=== PATIENT | male | born 1985 | race Caucasian/White ===

== ENCOUNTER 2023-02-13 22:16 | Emergency (ER) | payer OTHER ==
[2023-02-13 22:36] VITALS: RESP 18; TEMP 98.5
[2023-02-13] MEDS ORDERED: KETOROLAC 15 MG/ML 1 ML VIAL IM STA (23:10)
--- NOTE | 2023-02-14 00:16 | XR ---
EXAM: XR Left Foot Complete, 3 or More Views CLINICAL HISTORY: fall pain swelling TECHNIQUE: Frontal, lateral and oblique views of the left foot. COMPARISON: No relevant prior studies available. FINDINGS: Bones/joints: Unremarkable. No acute fracture. No dislocation. Soft tissues: Unremarkable. No radiopaque foreign body. IMPRESSION: Normal left foot x-rays.
--- NOTE | 2023-02-14 00:17 | XR ---
EXAM: XR Left Ankle Complete, 3 or More Views CLINICAL HISTORY: fall, pain, swelling TECHNIQUE: Frontal, lateral and oblique views of the left ankle. COMPARISON: No relevant prior studies available. FINDINGS: Bones/joints: Unremarkable. No acute fracture. No dislocation. Soft tissues: Unremarkable. IMPRESSION: Normal left ankle x-rays.
--- NOTE | 2023-02-14 00:38 | ED ---
General Adult HPI - General Chief complaint: Extremity Injury, Lower Stated complaint: Left Ankle Injury Time Seen by Provider: 02/13/23 22:49 Source: patient Mode of arrival: ambulatory Limitations: no limitations - History of Present Illness Initial comments: 37-year-old male presenting to the ED with a chief complaint of left ankle injury. Patient states this morning lost his footing and inverted his ankle. Notes that he has had difficulty ambulating since. No other injuries at this time. No other complaints. - Related Data Previous Rx's Medication Instructions Recorded Ibuprofen [Motrin] 600 mg PO Q8HR PRN #20 tab 02/14/23 Allergies Allergy/AdvReac Type Severity Reaction Status Date / Time No Known Allergies Allergy Verified 02/13/23 22:18 Review of Systems ROS Statement: Those systems with pertinent positive or pertinent negative responses have been documented in the HPI. ROS Other: All systems not noted in ROS Statement are negative. Past Medical History Past Medical History: Hypertension History of Any Multi-Drug Resistant Organisms: None Reported Past Surgical History: No Surgical Hx Reported Past Psychological History: Anxiety, Depression Smoking Status: Current every day smoker Past Alcohol Use History: None Reported Past Drug Use History: None Reported General Exam Limitations: no limitations General appearance: alert, in no apparent distress Neck exam: Present: normal inspection Respiratory exam: Present: normal lung sounds bilaterally Cardiovascular Exam: Present: regular rate, normal rhythm GI/Abdominal exam: Present: soft Extremities exam: Present: other (No significant tenderness palpation at the lateral malleolus, the malleolus, navicular, base of the fifth metatarsal.) Neurological exam: Present: alert, oriented X3 Skin exam: Present: warm, dry Course Vital Signs 02/13/23 22:19 Temperature 98.5 F Pulse Rate 81 Respiratory 18 Rate Blood Pressure 144/101 O2 Sat by Pulse 98 Oximetry Medical Decision Making - Medical Decision Making Was pt. sent in by a medical professional or institution (, PA, PLANTING MATERIAL REMOVER, urgent care, hospital, or group home...) When possible be specific @ -No Did you speak to anyone other than the patient for history (EMS, parent, family, police, friend...)? What history was obtained from this source @ -No Did you review nursing and triage notes (agree or disagree)? Why? @ -I reviewed and agree with nursing and triage notes Were old charts reviewed (outside hosp., previous admission, EMS record, old EKG, old radiological studies, urgent care reports/EKG's, group home records)? Report findings @ -No old charts were reviewed Differential Diagnosis (chest pain, altered mental status, abdominal pain women, abdominal pain men, vaginal bleeding, weakness, fever, dyspnea, syncope, headache, dizziness, GI bleed, back pain, seizure, CVA, palpatations, mental health, musculoskeletal)? @ -Differential Musculoskeletal Muscular strain, contusion, ligament sprain, fracture, arthritis, septic arthritis, bursitis, cellulitis, muscle spasm, nerve compression, DVT, arterial occlusion, herpes zoster, electrolyte abnormality, tumor.... This is not meant to be in all inclusive list EKG interpreted by me (3pts min.). @ -As above X-rays interpreted by me (1pt min.). @ -X-rays of the left foot and ankle interpreted by me showing no evidence of fracture or other acute finding. CT interpreted by me (1pt min.). @ -None done U/S interpreted by me (1pt. min.). @ -None done What testing was considered but not performed or refused? (CT, X-rays, U/S, labs)? Why? @ -None What meds were considered but not given or refused? Why? @ -None Did you discuss the management of the patient with other professionals (professionals i.e. , PA, PLANTING MATERIAL REMOVER, lab, RT, psych nurse, social media marketer, door to door sales representative, teacher, asset protection officer, pillowcase sewer)? Give summary @ -No Was smoking cessation discussed for >3mins.? @ -No Was critical care preformed (if so, how long)? @ -No Were there social determinants of health that impacted care today? How? (Homelessness, low income, unemployed, alcoholism, drug addiction, transportation, low edu. Level, literacy, decrease access to med. care, residential, rehab)? @ -No Was there de-escalation of care discussed even if they declined (Discuss DNR or withdrawal of care, Hospice)? DNR status @ -No What co-morbidities impacted this encounter? (DM, HTN, Smoking, COPD, CAD, Cancer, CVA, ARF, Chemo, Hep., AIDS, mental health diagnosis, sleep apnea, morbid obesity)? @ -None Was patient admitted / discharged? Hospital course, mention meds given and route, prescriptions, significant lab abnormalities, going to OR and other pertinent info. @ -Discharge 37-year-old male presents to the ED after inverting his left ankle this morning. Imaging shows no acute findings. Patient provided Toradol with significant improvement of pain. Discharged home in stable condition. Patient's ankle wrapped for comfort. Undiagnosed new problem with uncertain prognosis? @ -No Drug Therapy requiring intensive monitoring for toxicity (Heparin, Nitro, Insulin, Cardizem)? @ -No Were any procedures done? @ -No Diagnosis/symptom? @ -Ankle sprain Acute, or Chronic, or Acute on Chronic? @ -Acute Uncomplicated (without systemic symptoms) or Complicated (systemic symptoms)? @ -Uncomplicated Side effects of treatment? @ -No Exacerbation, Progression, or Severe Exacerbation? @ -No Poses a threat to life or bodily function? How? (Chest pain, USA, CT, pneumonia, PE, COPD, DKA, ARF, appy, cholecystitis, CVA, Diverticulitis, Homicidal, Suicidal, threat to staff... and all critical care pts) @ -No Disposition Clinical Impression: Ankle sprain Disposition: HOME SELF-CARE Condition: Good Instructions (If sedation given, give patient instructions): Ankle Sprain (ED) Additional Instructions: Please return to the Emergency Department if symptoms worsen or any other concerns. Prescriptions: Ibuprofen [Motrin] 600 mg PO Q8HR PRN #20 tab PRN Reason: Pain Is patient prescribed a controlled substance at d/c from ED?: No Referrals: None,Stated [Primary Care Provider] - 1-2 days Time of Disposition: 00:41
[2023-02-14 01:20] VITALS: BP 149/97; PULSE 72
== END 2023-02-14 01:10 | disposition home or self-care (01) ==
LOC: EC 22:16
DX: S93.402A Sprain of unspecified ligament of left ankle, initial encounter (principal); I10 Essential (primary) hypertension; F17.200 Nicotine dependence, unspecified, uncomplicated; Z86.59 Personal history of other mental and behavioral disorders; X50.9XXA Other and unspecified overexertion or strenuous movements or postures, initial encounter
CPT/HCPCS: 73610; 73630; 99283; 96372; J1885

== ENCOUNTER 2023-03-01 18:47 | Inpatient (IN) | payer OTHER ==
[2023-03-01] MEDS ORDERED: SODIUM CHLORIDE 0.9% 1,000 ML IV STA (18:50)
[2023-03-01] MEDS ORDERED: NALOXONE 0.4 MG/ML 1 ML VIAL IV STA (18:50)
--- NOTE | 2023-03-01 18:52 | ED ---
Overdose HPI - General Stated Complaint: Overdose, Mental Health Time Seen by Provider: 03/01/23 18:49 Source: RN notes reviewed, old records reviewed Mode of arrival: EMS Limitations: no limitations - History of Present Illness Initial Comments: This is a 37-year-old male to the emergency department for evaluation. Patient suicide attempt with overdose today. Patient presents with overdose today. Patient is here in the emergency department for overdose on for medications including beta maureen blood pressure medications as well as drinking alcohol today and suicide attempt. Patient himself feels weak lightheaded and sometimes confused MD Complaint: intentional overdose -: days(s) Intent: unwilling to say Context: Intentional Overdose: relationship problems Context: Accidental Overdose: wanted to get high Associated Symptoms: depression Treatments Prior to Arrival: none - Related Data Home Medications Medication Instructions Recorded Confirmed Losartan [Cozaar] 50 mg PO DAILY 03/01/23 03/03/23 Metoprolol Succinate (ER) [Toprol 100 mg PO DAILY 03/01/23 03/03/23 XL] Rizatriptan Odt [Maxalt AUTO TRANSMISSION SPECIALIST] 10 mg PO BID PRN 03/01/23 03/03/23 Previous Rx's Medication Instructions Recorded Mirtazapine [Remeron] 15 mg PO HS PRN 14 Days #14 tab 03/09/23 Nicotine 14Mg/24Hr Patch [Habitrol] 1 patch TRANSDERM DAILY 14 Days 03/09/23 #14 patch Nicotine Gum (Polacrilex) 2 mg BUCCAL Q4HR PRN pieceofgum 03/09/23 [Nicorette] Sertraline [Zoloft] 100 mg PO DAILY 30 Days #30 tab 03/09/23 diphenhydrAMINE [Benadryl] 50 mg PO HS 30 Days #30 cap 03/09/23 hydrOXYzine pamoate [Vistaril] 50 mg PO DAILY PRN 30 Days #30 cap 03/09/23 Allergies Allergy/AdvReac Type Severity Reaction Status Date / Time No Known Allergies Allergy Verified 03/01/23 19:36 Review of Systems ROS Statement: Those systems with pertinent positive or pertinent negative responses have been documented in the HPI. ROS Other: All systems not noted in ROS Statement are negative. Past Medical History Past Medical History: Hypertension History of Any Multi-Drug Resistant Organisms: None Reported Past Surgical History: No Surgical Hx Reported Past Psychological History: Anxiety, Depression Smoking Status: Current every day smoker Past Alcohol Use History: None Reported Past Drug Use History: None Reported - Past Family History Mother Family Medical History: COPD, Pneumonia Additional Family Medical History / Comment(s): Emphysema, had recent heart cath General Exam General appearance: alert, in no apparent distress Head exam: Present: atraumatic, normocephalic, normal inspection Eye exam: Present: normal appearance, PERRL, EOMI. Absent: scleral icterus, conjunctival injection, periorbital swelling ENT exam: Present: normal exam, mucous membranes moist Neck exam: Present: normal inspection. Absent: tenderness, meningismus, lymphadenopathy Respiratory exam: Present: normal lung sounds bilaterally. Absent: respiratory distress, wheezes, rales, rhonchi, stridor Cardiovascular Exam: Present: regular rate, normal rhythm, normal heart sounds. Absent: systolic murmur, diastolic murmur, rubs, gallop, clicks GI/Abdominal exam: Present: soft, normal bowel sounds. Absent: distended, tenderness, guarding, rebound, rigid Extremities exam: Present: normal inspection, full ROM, normal capillary refill. Absent: tenderness, pedal edema, joint swelling, calf tenderness Back exam: Present: normal inspection Neurological exam: Present: alert, oriented X3, CN II-XII intact Psychiatric exam: Present: normal affect, normal mood Skin exam: Present: warm, dry, intact, normal color. Absent: rash Course Vital Signs 03/01/23 03/01/23 03/01/23 18:48 18:58 19:20 Temperature 97.1 F L Pulse Rate 81 84 Respiratory 16 16 14 Rate Blood Pressure 114/86 123/81 O2 Sat by Pulse 95 95 Oximetry 03/01/23 03/01/23 03/02/23 20:00 21:27 00:02 Temperature Pulse Rate 75 70 71 Respiratory 20 17 17 Rate Blood Pressure 119/82 112/84 98/71 O2 Sat by Pulse 95 96 95 Oximetry 03/02/23 03/02/23 03/02/23 01:01 01:33 02:31 Temperature Pulse Rate 67 65 77 Respiratory 17 17 19 Rate Blood Pressure 98/65 100/67 98/70 O2 Sat by Pulse 94 L 67 L 93 L Oximetry 03/02/23 03/02/23 03/02/23 02:46 03:16 04:53 Temperature Pulse Rate 70 70 80 Respiratory 18 17 17 Rate Blood Pressure 97/65 100/68 106/75 O2 Sat by Pulse 94 L 95 96 Oximetry 03/02/23 03/02/23 03/02/23 05:09 06:19 09:49 Temperature 98.2 F Pulse Rate 79 74 77 Respiratory 17 17 18 Rate Blood Pressure 127/77 129/92 130/90 O2 Sat by Pulse 93 L 94 L 96 Oximetry 03/02/23 03/02/23 03/02/23 10:30 12:26 13:00 Temperature Pulse Rate 72 69 79 Respiratory 18 13 16 Rate Blood Pressure 131/89 146/103 145/100 O2 Sat by Pulse 96 Oximetry 03/02/23 03/02/23 03/02/23 14:00 15:00 16:00 Temperature Pulse Rate 79 67 67 Respiratory 18 15 14 Rate Blood Pressure 124/92 132/94 112/85 O2 Sat by Pulse Oximetry 03/02/23 03/02/23 03/02/23 17:00 18:00 19:00 Temperature Pulse Rate 68 71 72 Respiratory 16 12 Rate Blood Pressure 127/86 135/93 135/97 O2 Sat by Pulse Oximetry 03/02/23 03/02/23 03/02/23 20:00 21:00 22:00 Temperature Pulse Rate 64 64 62 Respiratory 18 16 16 Rate Blood Pressure 128/88 137/109 137/102 O2 Sat by Pulse Oximetry 03/02/23 23:35 Temperature 98.2 F Pulse Rate 94 Respiratory 19 Rate Blood Pressure 118/84 O2 Sat by Pulse 98 Oximetry - Reevaluation(s) Reevaluation #1: 03/01/23 21:02 Medical record is reviewed Reevaluation #2: 03/01/23 21:02 Patient's vital signs have remained normal and stable throughout ER stay Reevaluation #3: 03/01/23 21:02 Patient informed results questions answered Reevaluation #4: 03/01/23 21:02 Was pt. sent in by a medical professional or institution (, PA, DEVICE PROCESSING ENGINEER, urgent care, hospital, or longterm...) When possible be specific @ -no Did you speak to anyone other than the patient for history (EMS, parent, family, police, friend...)? What history was obtained from this source @ -no Did you review nursing and triage notes (agree or disagree)? Why? @ -agree Are old charts reviewed (outside hosp., previous admission, EMS record, old EKG, old radiological studies, urgent care reports/EKG's, longterm records)? Report findings @ -yes Differential Diagnosis (chest pain, altered mental status, abdominal pain women, abdominal pain men, vaginal bleeding, weakness, fever, dyspnea, syncope, headache, dizziness, GI bleed, back pain, seizure, CVA, palpatations, mental health, musculoskeletal)? @ -prior EKG interpreted by me (3pts min.). @ -yes X-rays interpreted by me (1pt min.). @ -no CT interpreted by me (1pt min.). @ -no U/S interpreted by me (1pt. min.). @ -no What testing was considered but not performed or refused? (CT, X-rays, U/S, labs)? Why? @ -none What meds were considered but not given or refused? Why? @ -none Did you discuss the management of the patient with other professionals (professionals i.e. , PA, DEVICE PROCESSING ENGINEER, lab, RT, psych nurse, family welfare social work professor, cdl b driver, teacher, forestry technical officer, case fitter)? Give summary @ -no Was smoking cessation discussed for >3mins.? @ -no Was critical care preformed (if so, how long)? @ -no Were there social determinants of health that impacted care today? How? (Homelessness, low income, unemployed, alcoholism, drug addiction, transportation, low edu. Level, literacy, decrease access to med. care, residential, rehab)? @ -none Was there de-escalation of care discussed even if they declined (Discuss DNR or withdrawal of care, Hospice)? DNR status @ -no What co-morbidities impacted this encounter? (DM, HTN, Smoking, COPD, CAD, Cancer, CVA, ARF, Chemo, Hep., AIDS, mental health diagnosis, sleep apnea, m orbid obesity)? @ -none Was patient admitted / discharged? Hospital course, mention meds given and route, prescriptions, significant lab abnormalities, going to OR and other pertinent info. @ - 37 male to the emergency department today for evaluation of overdose polysubstance overdose with alcohol intoxication and patient be admitted for suicidal attempt Admitted Undiagnosed new problem with uncertain prognosis? @ -no Drug Therapy requiring intensive monitoring for toxicity (Heparin, Nitro, I nsulin, Cardizem)? @ -no Were any procedures done? @ -no Diagnosis/symptom? @ -Overdose, polysubstance overdose suicide Acute, or Chronic, or Acute on Chronic? @ -Acute Uncomplicated (without systemic symptoms) or Complicated (systemic symptoms)? @ -Complicated Side effects of treatment? @ -no Exacerbation, Progression, or Severe Exacerbation? @ -exacerbation Poses a threat to life or bodily function? How? (Chest pain, [place], [place], pneumonia, PE, COPD, DKA, ARF, appy, cholecystitis, CVA, Diverticulitis, Homicidal, Suicidal, threat to staff... and all critical care pts) @ -yes significant overdose - Consultations Consultation #1: Spoke with PM were agrees to admit this patient Medical Decision Making - Medical Decision Making 37 male to the emergency department today for evaluation of overdose polysubstance overdose with alcohol intoxication and patient be admitted for suicidal attempt - Lab Data Result diagrams: 03/03/23 08:32 03/03/23 08:32 Lab Results 03/01/23 03/01/23 03/01/23 Range/Units 18:53 18:55 18:55 WBC 7.4 (3.8-10.6) k/uL RBC 4.95 (4.30-5.90) m/uL Hgb 14.3 (13.0-17.5) gm/dL Hct 43.0 (39.0-53.0) % MCV 86.8 (80.0-100.0) fL MCH 28.9 (25.0-35.0) pg MCHC 33.3 (31.0-37.0) g/dL RDW 13.7 (11.5-15.5) % Plt Count 554 H (150-450) k/uL MPV 8.3 Neutrophils % 52 % Lymphocytes % 36 % Monocytes % 4 % Eosinophils % 3 % Basophils % 1 % Neutrophils # 3.9 (1.3-7.7) k/uL Lymphocytes # 2.7 (1.0-4.8) k/uL Monocytes # 0.3 (0-1.0) k/uL Eosinophils # 0.3 (0-0.7) k/uL Basophils # 0.1 (0-0.2) k/uL PT 10.1 (10.0-12.5) sec INR 0.9 (<1.2) Sodium (137-145) mmol/L Potassium (3.5-5.1) mmol/L Chloride (98-107) mmol/L Carbon Dioxide (22-30) mmol/L Anion Gap mmol/L BUN (9-20) mg/dL Creatinine (0.66-1.25) mg/dL Est GFR (CKD-EPI)AfAm (>60 ml/min/1.73 sqM) Est GFR (CKD-EPI)NonAf (>60 ml/min/1.73 sqM) Glucose (74-99) mg/dL POC Glucose (mg/dL) 93 (70-110) mg/dL POC Glu Test Developer ID Josh Menchaca Plasma Lactic Acid De (0.7-2.0) mmol/L Calcium (8.4-10.2) mg/dL Total Bilirubin (0.2-1.3) mg/dL AST (17-59) U/L ALT (4-49) U/L Alkaline Phosphatase (38-126) U/L Total Protein (6.3-8.2) g/dL Albumin (3.5-5.0) g/dL Lipase (23-300) U/L Salicylates mg/dL Acetaminophen ug/mL [place] mmol/L Serum Alcohol mg/dL 03/01/23 03/01/23 Range/Units 18:55 18:55 WBC (3.8-10.6) k/uL RBC (4.30-5.90) m/uL Hgb (13.0-17.5) gm/dL Hct (39.0-53.0) % MCV (80.0-100.0) fL MCH (25.0-35.0) pg MCHC (31.0-37.0) g/dL RDW (11.5-15.5) % Plt Count (150-450) k/uL MPV Neutrophils % % Lymphocytes % % Monocytes % % Eosinophils % % Basophils % % Neutrophils # (1.3-7.7) k/uL Lymphocytes # (1.0-4.8) k/uL Monocytes # (0-1.0) k/uL Eosinophils # (0-0.7) k/uL Basophils # (0-0.2) k/uL PT (10.0-12.5) sec INR (<1.2) Sodium 141 (137-145) mmol/L Potassium 4.0 (3.5-5.1) mmol/L Chloride 107 (98-107) mmol/L Carbon Dioxide 20 L (22-30) mmol/L Anion Gap 14 mmol/L BUN 14 (9-20) mg/dL Creatinine 0.75 (0.66-1.25) mg/dL Est GFR (CKD-EPI)AfAm >90 (>60 ml/min/1.73 sqM) Est GFR (CKD-EPI)NonAf >90 (>60 ml/min/1.73 sqM) Glucose 99 (74-99) mg/dL POC Glucose (mg/dL) (70-110) mg/dL POC Glu Test Developer ID Plasma Lactic Acid De 2.5 H* (0.7-2.0) mmol/L Calcium 8.5 (8.4-10.2) mg/dL Total Bilirubin 0.3 (0.2-1.3) mg/dL AST 35 (17-59) U/L ALT 26 (4-49) U/L Alkaline Phosphatase 61 (38-126) U/L Total Protein 6.9 (6.3-8.2) g/dL Albumin 4.2 (3.5-5.0) g/dL Lipase 187 (23-300) U/L Salicylates <1.0 mg/dL Acetaminophen <10.0 ug/mL [place] <0.2 mmol/L Serum Alcohol 267 H* mg/dL - EKG Data -: EKG Interpreted by Me (EKG is sinus 82 OH 182 QRS 84 QTc 398) Disposition Clinical Impression: Drug overdose, Suicide attempt by multiple drug overdose Disposition: ADMITTED IP TO THIS HOSP Condition: Good Is patient prescribed a controlled substance at d/c from ED?: No Time of Disposition: 20:00
[2023-03-01 18:56] LABS: Glucose,Whole Blood 93 mg/dL (70-110)
[2023-03-01 19:16] LABS: Basophils # (A) 0.1 k/uL (0-0.2); Basophils % (A) 1 %; Eosinophils # (A) 0.3 k/uL (0-0.7); Eosinophils % (A) 3 %; HGB 14.3 gm/dL (13.0-17.5); Lymphocytes # (A) 2.7 k/uL (1.0-4.8); Lymphocytes % (A) 36 %; MCH 28.9 pg (25.0-35.0); MCHC 33.3 g/dL (31.0-37.0); MCV 86.8 fL (80.0-100.0); Mean Platelet Volume 8.3; Monocytes # (A) 0.3 k/uL (0-1.0); Monocytes % (A) 4 %; Neutrophils # (A) 3.9 k/uL (1.3-7.7); Neutrophils % (A) 52 %; Platelet Count 554 k/uL (150-450); RBC 4.95 m/uL (4.30-5.90); RDW 13.7 % (11.5-15.5); WBC 7.4 k/uL (3.8-10.6)
[2023-03-01 19:17] LABS: ALT 26 U/L (4-49); AST 35 U/L (17-59); Acetaminophen <10.0 ug/mL; African American GFR (CKD) >90 (>60 ml/min/1.73 sqM); Albumin 4.2 g/dL (3.5-5.0); Alkaline Phosphatase 61 U/L (38-126); Anion Gap 14 mmol/L; Blood Urea Nitrogen 14 mg/dL (9-20); Calcium 8.5 mg/dL (8.4-10.2); Carbon Dioxide 20 mmol/L (22-30); Chloride 107 mmol/L (98-107); Glucose 99 mg/dL (74-99); Lipase 187 U/L (23-300); Non-African American GFR(CKD) >90 (>60 ml/min/1.73 sqM); Salicylate <1.0 mg/dL; Sodium 141 mmol/L (137-145); Total Bilirubin 0.3 mg/dL (0.2-1.3); Total Protein 6.9 g/dL (6.3-8.2)
[2023-03-01 19:21] LABS: INR 0.9 (<1.2); Prothrombin Time 10.1 sec (10.0-12.5)
[2023-03-01 19:22] LABS: Alcohol 267 mg/dL
[2023-03-01 19:33] LABS: Lithium <0.2 mmol/L
[2023-03-01] MEDS ORDERED: ONDANSETRON 4 MG/2 ML VIAL IVP PRN (19:48)
[2023-03-01] MEDS ORDERED: NALOXONE 0.4 MG/ML 1 ML VIAL IV PRN (19:48)
[2023-03-01] MEDS: SODIUM CHLORIDE 0.9% 1,000 ML IV SCH (20:57)
[2023-03-02] MEDS: SODIUM CHLORIDE 0.9% 1,000 ML IV ONE ×2 (02:47→06:50)
[2023-03-02] MEDS: SODIUM CHLORIDE 0.9% 1,000 ML IV SCH (02:50)
[2023-03-02 06:09] LABS: Amphetamine Screen,Urine Not Detected (NotDetected); Barbiturate Screen,Urine Not Detected (NotDetected); Benzodiazepines Screen,Urine Not Detected (NotDetected); Cocaine Screen,Urine Not Detected (NotDetected); Methadone Screen, Urine Not Detected (NotDetected); Opiate Screen,Urine Not Detected (NotDetected); Oxycodone Screen, Urine Not Detected (NotDetected); Phencyclidine Screen,Urine Not Detected (NotDetected); Tricyclic Antidepressant,Urine Not Detected (NotDetected); Urn Cannabinoid Scrn Detected (NotDetected)
[2023-03-02 08:45] LABS: Basophils # (A) 0.1 k/uL (0-0.2); Basophils % (A) 1 %; Eosinophils # (A) 0.2 k/uL (0-0.7); Eosinophils % (A) 3 %; HGB 13.9 gm/dL (13.0-17.5); Lymphocytes # (A) 2.4 k/uL (1.0-4.8); Lymphocytes % (A) 33 %; MCH 29.2 pg (25.0-35.0); MCHC 33.2 g/dL (31.0-37.0); MCV 87.9 fL (80.0-100.0); Mean Platelet Volume 9.1; Monocytes # (A) 0.4 k/uL (0-1.0); Monocytes % (A) 6 %; Neutrophils # (A) 4.1 k/uL (1.3-7.7); Neutrophils % (A) 55 %; Platelet Count 472 k/uL (150-450); RBC 4.77 m/uL (4.30-5.90); WBC 7.5 k/uL (3.8-10.6)
[2023-03-02 08:51] LABS: ALT 26 U/L (4-49); AST 34 U/L (17-59); African American GFR (CKD) >90 (>60 ml/min/1.73 sqM); Albumin 3.9 g/dL (3.5-5.0); Alkaline Phosphatase 56 U/L (38-126); Anion Gap 10 mmol/L; Blood Urea Nitrogen 12 mg/dL (9-20); Calcium 8.6 mg/dL (8.4-10.2); Carbon Dioxide 22 mmol/L (22-30); Chloride 106 mmol/L (98-107); Glucose 88 mg/dL (74-99); Lipase 71 U/L (23-300); Non-African American GFR(CKD) >90 (>60 ml/min/1.73 sqM); Sodium 138 mmol/L (137-145); Total Bilirubin 0.5 mg/dL (0.2-1.3); Total Protein 6.5 g/dL (6.3-8.2)
[2023-03-02] MEDS: MORPHINE SULFATE 4 MG/ML SYRINGE IV PRN ×3 (09:49→20:35)
[2023-03-02] MEDS ORDERED: CALCIUM CARBONATE 500 MG CHEWABLE PO PRN (09:56)
[2023-03-02] MEDS ORDERED: MAG HYDROX/AL HYDROX/SIMETH 30 ML CUP PO PRN (09:56)
[2023-03-02] MEDS ORDERED: ACETAMINOPHEN TAB 325 MG TAB PO PRN (09:56)
[2023-03-02] MEDS ORDERED: NALOXONE 0.4 MG/ML 1 ML VIAL IV PRN (09:56)
--- NOTE | 2023-03-02 12:01 | P.HPIM ---
History of Present Illness H&P Date: 03/02/23 History of present illness; patient is a 37-year-old gentleman with past medical history significant for depression, hypertension who presented to the ER for an attempted suicide attempt and overdose. Patient states that he lives with his mother who he is the primary caregiver off. Patient stated he has been feeling very stressed and depressed for the last week. Patient was having loss of appetite and lack of interest in normal activities. Patient tried to commit suicide by overdosing on his blood pressure medications which was metoprolol and drinking alcohol at the same time. Patient was complaining of weakness, denies any chest pain or shortness of breath. Denies any lightheadedness or dizziness. No complaint of palpitations. Denies any auditory or visual hallucinations. Denies any homicidal thoughts .Because of the symptoms, patient was brought to the ER. Initial lab work done in the ER showed WBC 7.4, hemoglobin 14.3, platelet count 554, sodium 141, potassium 4, BUN/creatinine 14, creatinine 0.75, lactate was 2.5 Urine drug screen was positive for marijuana EKG done in the ERShowed sinus rhythm, no ST segment elevation, no T-wave inversions seen Patient admitted to medicine service REVIEW OF SYSTEMS: CONSTITUTIONAL: No fever, no malaise, no fatigue. HEENT: No recent visual problems or hearing problems. Denied any sore throat. CARDIOVASCULAR: No chest pain, orthopnea, PND, no palpitations, no syncope. PULMONARY: No shortness of breath, no cough, no hemoptysis. GASTROINTESTINAL: No diarrhea, no nausea, no vomiting, no abdominal pain. NEUROLOGICAL: No headaches, no weakness, no numbness. HEMATOLOGICAL: Denies any bleeding or petechiae. GENITOURINARY: Denies any burning micturition, frequency, or urgency. MUSCULOSKELETAL/RHEUMATOLOGICAL: Denies any joint pain, swelling, or any muscle pain. ENDOCRINE: Denies any polyuria or polydipsia. The rest of the 14-point review of systems is negative. PHYSICAL EXAMINATION: GENERAL: The patient is alert and oriented x3, not in any acute distress. Well developed, well nourished. HEENT: Pupils are round and equally reacting to light. EOMI. No scleral icterus. No conjunctival pallor. Normocephalic, atraumatic. No pharyngeal erythema. No thyromegaly. CARDIOVASCULAR: S1 and S2 present. No murmurs, rubs, or gallops. PULMONARY: Chest is clear to auscultation, no wheezing or crackles. ABDOMEN: Soft, nontender, nondistended, normoactive bowel sounds. No palpable organomegaly. MUSCULOSKELETAL: No joint swelling or deformity. EXTREMITIES: No cyanosis, clubbing, or pedal edema. NEUROLOGICAL: Gross neurological examination did not reveal any focal deficits. SKIN: No rashes. Assessment and plan Suicidal attempt Drug overdose Lactic acidosis Major depression Hypertension Monitor vital signs Monitor CBC Monitor CMP Continue telemetry monitoring Hold all beta blockers for now Suicide precautions Elopement precautions Resume home meds Psych consulted Labs and medication were reviewed.. Continue same treatment. Continue with symptomatic treatment. Resume home medication. Monitor labs and vitals. DVT and GI prophylaxis. Further recommendations as per clinical course of the patient Dictation was produced using [employer] dictation software. please excuse any grammatical, word or spelling errors. Past Medical History Past Medical History: Hypertension History of Any Multi-Drug Resistant Organisms: None Reported Past Surgical History: No Surgical Hx Reported Past Psychological History: Anxiety, Depression Smoking Status: Current every day smoker Past Alcohol Use History: None Reported Past Drug Use History: None Reported Medications and Allergies Home Medications Medication Instructions Recorded Confirmed Type Losartan [Cozaar] 50 mg PO DAILY 03/01/23 03/01/23 History Metoprolol Succinate (ER) [Toprol 100 mg PO DAILY 03/01/23 03/01/23 History Xl] Rizatriptan Odt [Maxalt [employer]] 10 mg PO BID PRN 03/01/23 03/01/23 History Allergies Allergy/AdvReac Type Severity Reaction Status Date / Time No Known Allergies Allergy Verified 03/01/23 19:36 Physical Exam Vitals: Vital Signs Temp Pulse Resp BP Pulse Ox 03/02/23 09:49 77 18 130/90 96 03/02/23 06:19 98.2 F 74 17 129/92 94 L 03/02/23 05:09 79 17 127/77 93 L 03/02/23 04:53 80 17 106/75 96 03/02/23 03:16 70 17 100/68 95 03/02/23 02:46 70 18 97/65 94 L 03/02/23 02:31 77 19 98/70 93 L 03/02/23 01:33 65 17 100/67 67 L 03/02/23 01:01 67 17 98/65 94 L 03/02/23 00:02 71 17 98/71 95 03/01/23 21:27 70 17 112/84 96 03/01/23 20:00 75 20 119/82 95 03/01/23 19:20 84 14 123/81 95 03/01/23 18:58 16 03/01/23 18:48 97.1 F L 81 16 114/86 95 Intake and Output 03/01/23 03/02/23 03/02/23 22:59 06:59 14:59 Other: Weight 66.678 kg Results CBC & Chem 7: 03/02/23 08:05 03/02/23 08:05 Labs: Abnormal Lab Results - Last 24 Hours (Table) 03/01/23 03/01/23 03/01/23 Range/Units 18:55 18:55 18:55 Plt Count 554 H (150-450) k/uL Carbon Dioxide 20 L (22-30) mmol/L Creatinine (0.66-1.25) mg/dL Plasma Lactic Acid De 2.5 H* (0.7-2.0) mmol/L U Marijuana (THC) Screen (NotDetected) Serum Alcohol 267 H* mg/dL 03/02/23 03/02/23 03/02/23 Range/Units 05:39 08:05 08:05 Plt Count 472 H (150-450) k/uL Carbon Dioxide (22-30) mmol/L Creatinine 0.60 L (0.66-1.25) mg/dL Plasma Lactic Acid De (0.7-2.0) mmol/L U Marijuana (THC) Screen Detected H (NotDetected) Serum Alcohol mg/dL
[2023-03-03 01:14] VITALS: RESP 16
[2023-03-03] MEDS: SODIUM CHLORIDE 0.9% 1,000 ML IV SCH ×4 (01:32→08:37)
[2023-03-03] MEDS: MORPHINE SULFATE 4 MG/ML SYRINGE IV PRN ×3 (01:51→14:33)
[2023-03-03] MEDS ORDERED: LOSARTAN 50 MG TAB PO SCH (10:30)
--- NOTE | 2023-03-03 12:57 | P.PN ---
Subjective Progress Note Date: 03/03/23 patient is a 37-year-old gentleman with past medical history significant for depression, hypertension who presented to the ER for an attempted suicide attempt and overdose. Patient states that he lives with his mother who he is the primary caregiver off. Patient stated he has been feeling very stressed and depressed for the last week. Patient was having loss of appetite and lack of interest in normal activities. Patient tried to commit suicide by overdosing on his blood pressure medications which was metoprolol and drinking alcohol at the same time. Patient was complaining of weakness, denies any chest pain or shortness of breath. Denies any lightheadedness or dizziness. No complaint of palpitations. Denies any auditory or visual hallucinations. Denies any homicidal thoughts .Because of the symptoms, patient was brought to the ER. Initial lab work done in the ER showed WBC 7.4, hemoglobin 14.3, platelet count 554, sodium 141, potassium 4, BUN/creatinine 14, creatinine 0.75, lactate was 2.5 Urine drug screen was positive for marijuana EKG done in the ERShowed sinus rhythm, no ST segment elevation, no T-wave inversions seen Patient admitted to medicine service 03/03. Patient seen and examined. Blood pressure was elevated, will resume losartan. Denies any auditory or visual hallucination. Denies any suicidal thoughts today. REVIEW OF SYSTEMS: CONSTITUTIONAL: No fever, no malaise,. CARDIOVASCULAR: No chest pain, no palpitations, no syncope. PULMONARY: No shortness of breath, no cough, GASTROINTESTINAL: No diarrhea, no nausea, no vomiting, no abdominal pain. NEUROLOGICAL: No headaches, no weakness, PHYSICAL EXAMINATION: GENERAL: The patient is alert and oriented x3, not in any acute distress. Well developed, well nourished. HEENT: Pupils are round and equally reacting to light. EOMI. No scleral icterus. No conjunctival pallor. Normocephalic, atraumatic. No pharyngeal erythema. No thyromegaly. CARDIOVASCULAR: S1 and S2 present. No murmurs, rubs, or gallops. PULMONARY: Chest is clear to auscultation, no wheezing or crackles. ABDOMEN: Soft, nontender, nondistended, normoactive bowel sounds. No palpable organomegaly. MUSCULOSKELETAL: No joint swelling or deformity. EXTREMITIES: No cyanosis, clubbing, or pedal edema. NEUROLOGICAL: Gross neurological examination did not reveal any focal deficits. SKIN: No rashes. Assessment and plan Suicidal attempt Drug overdose Lactic acidosis Major depression Hypertension Monitor vital signs Monitor CBC Monitor CMP Continue telemetry monitoring Hold all beta blockers for now Suicide precautions Elopement precautions Resume losartan Psych consulted Labs and medication were reviewed.. Continue same treatment. Continue with symptomatic treatment. Resume home medication. Monitor labs and vitals. DVT and GI prophylaxis. Further recommendations as per clinical course of the patient Dictation was produced using [employer] dictation software. please excuse any grammatical, word or spelling errors. Objective - Vital Signs Vital signs: Vital Signs Temp 97.5 F L 03/03/23 07:16 Pulse 72 03/03/23 07:16 Resp 16 03/03/23 07:16 BP 122/80 03/03/23 07:16 Pulse Ox 97 03/03/23 07:16 FiO2 Intake & Output 03/02/23 03/03/23 03/03/23 18:59 06:59 18:59 Intake Total 590 Balance 590 Weight 66.678 kg Intake: Oral 590 Other: Voiding Method Toilet # Voids 2 - Labs CBC & Chem 7: 03/02/23 08:05 03/02/23 08:05
--- NOTE | 2023-03-03 14:36 | P.DS ---
Providers Date of admission: 03/01/23 19:48 Expected date of discharge: 03/03/23 Attending physician: Oswaldo Rowland Consults: 03/01/23 19:48 Consult Physician Routine Consulting Provider: Chucho Boykin Consult Reason/Comments: SI Do you want consulting provider notified?: Already Contacted Primary care physician: Stated None Hospital Course: Discharge diagnoses; Suicidal attempt Drug overdose Lactic acidosis Major depression Hypertension Hospital course; patient is a 37-year-old gentleman with past medical history significant for depression, hypertension who presented to the ER for an attempted suicide attempt and overdose. Patient states that he lives with his mother who he is the primary caregiver off. Patient stated he has been feeling very stressed and depressed for the last week. Patient was having loss of appetite and lack of interest in normal activities. Patient tried to commit suicide by overdosing on his blood pressure medications which was metoprolol and drinking alcohol at the same time. Patient was complaining of weakness, denies any chest pain or shortness of breath. Denies any lightheadedness or dizziness. No complaint of palpitations. Denies any auditory or visual hallucinations. Denies any homicidal thoughts .Because of the symptoms, patient was brought to the ER. Initial lab work done in the ER showed WBC 7.4, hemoglobin 14.3, platelet count 554, sodium 141, potassium 4, BUN/creatinine 14, creatinine 0.75, lactate was 2.5 Urine drug screen was positive for marijuana EKG done in the ERShowed sinus rhythm, no ST segment elevation, no T-wave inversions seen Patient admitted to medicine service 03/03. Patient seen and examined. Blood pressure was elevated, will resume losartan. Denies any auditory or visual hallucination. Denies any suicidal thoughts today. Psych evaluated the patient, recommended inpatient psych admission. Patient medically stable for discharge to inpatient psych PHYSICAL EXAMINATION: GENERAL: The patient is alert and oriented x3, not in any acute distress. Well developed, well nourished. HEENT: Pupils are round and equally reacting to light. EOMI. No scleral icterus. No conjunctival pallor. Normocephalic, atraumatic. No pharyngeal erythema. No thyromegaly. CARDIOVASCULAR: S1 and S2 present. No murmurs, rubs, or gallops. PULMONARY: Chest is clear to auscultation, no wheezing or crackles. ABDOMEN: Soft, nontender, nondistended, normoactive bowel sounds. No palpable organomegaly. MUSCULOSKELETAL: No joint swelling or deformity. EXTREMITIES: No cyanosis, clubbing, or pedal edema. NEUROLOGICAL: Gross neurological examination did not reveal any focal deficits. SKIN: No rashes. Dictation was produced using [email or web address] dictation software. please excuse any grammatical, word or spelling errors. Patient Condition at Discharge: Good Plan - Discharge Summary New Discharge Prescriptions: Continue Rizatriptan Odt [Maxalt BRICK [place]AYER] 10 mg PO BID PRN PRN Reason: Migraine Headache Metoprolol Succinate (ER) [Toprol XL] 100 mg PO DAILY Losartan [Cozaar] 50 mg PO DAILY Discharge Medication List Losartan [Cozaar] 50 mg PO DAILY 03/01/23 [History] Metoprolol Succinate (ER) [Toprol XL] 100 mg PO DAILY 03/01/23 [History] Rizatriptan Odt [Maxalt BRICK LAYER] 10 mg PO BID PRN 03/01/23 [History] Follow up Appointment(s)/Referral(s): None,Stated [Primary Care Provider] - 1-2 days Discharge Disposition: TRANSFER TO PSYCH HOSP/UNIT
[2023-03-03 15:01] VITALS: BP 148/86; PULSE 67; TEMP 98.3
[2023-03-03 15:02] LABS: Basophils # (A) 0.07 X 10*3/uL (0.00-0.10); Basophils % (A) 0.7 %; Eosinophils # (A) 0.24 X 10*3/uL (0.04-0.35); Eosinophils % (A) 2.5 %; HCT 42.8 % (39.6-50.0); HGB 13.8 g/dL (13.0-17.0); Lymphocytes # (A) 2.36 X 10*3/uL (0.90-5.00); Lymphocytes % (A) 25.1 %; MCH 28.6 pg (27.0-32.0); MCHC 32.2 g/dL (32.0-37.0); MCV 88.6 FL (80.0-97.0); Mean Platelet Volume 11.2 FL (9.5-12.2); Monocytes # (A) 0.67 X 10*3/uL (0.20-1.00); Monocytes % (A) 7.1 %; NRBC Per 100 WBC 0 X 10*3/uL (0.00-0.01); Neutrophils # (A) 6.06 X 10*3/uL (1.80-7.70); Neutrophils % (A) 64.4 %; Platelet Count 508 X 10*3/uL (140-440); RBC 4.83 X 10*6/uL (4.40-5.60); RDW 14.2 % (11.5-14.5); WBC 9.42 X 10*3/uL (4.50-10.00)
[2023-03-03 15:28] LABS: ALT 21 U/L (10-49); AST 21 U/L (14-35); Albumin 3.8 g/dL (3.8-4.9); Albumin/Globulin Ratio 1.73 Ratio (1.60-3.17); Alkaline Phosphatase 49 U/L (41-126); Blood Urea Nitrogen 13.2 mg/dL (9.0-27.0); Calcium 9.2 mg/dL (8.7-10.3); Carbon Dioxide 24.7 mmol/L (21.6-31.8); Chloride 104 mmol/L (96-109); Globulin 2.2 g/dL (1.6-3.3); Glucose 101 mg/dL (70-110); Potassium 4.6 mmol/L (3.5-5.5); Sodium 139 mmol/L (135-145); Total Bilirubin 0.3 mg/dL (0.3-1.2)
--- NOTE | 2023-03-03 15:32 | P.CN ---
Psychiatric Consult - . Consult date: 03/03/23 Consult:: 03/03/23 13:06 IDENTIFYING DATA: This patient is a 37-year-old male, currently lives with his mother and apartment, he is unemployed, he is single, he has no kids. REASON FOR REFERRAL: Psychiatry was consulted for suicidal ideations. HISTORY OF PRESENT ILLNESS: Patient was brought into the hospital on 03/01. According to ER report, "Patient presents with overdose today. Patient is here in the emergency department for overdose on for medications including beta maureen blood pressure medications as well as drinking alcohol today and suicide attempt. Patient himself feels weak lightheaded and sometimes confused" patient was seen today at the bedside and appeared to be depressed and his affect. He states that he overdosed on medications including his blood pressure medications, metoprolol, losartan, thyroid pills, Vistaril and also drank alcohol. His blood alcohol level was 267 and his urine drug screen was positive for THC. He did state that it was an intentional overdose to kill himself. He claims he has been feeling suicidal for the past several weeks [place] finally gathered encouraged to end his life. 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 States that him and his mother moved from [place] back to [place] in December 2022 and states that he had a difficult time in [place]. Claims that he is feeling isolated at this time, feels overwhelmed and helpless. Claims that he is having depression and anxiety. States that his sleep is poor, appetite is fair. . At this time patient denies any suicidal or homical ideations, intent or plan. Patient denies any auditory, visual hallucinations and denies any paranoia or delusions. Patients admits to using THC occasionally use, cigarettes daily, denies any alcohol use. PAST PSYCHIATRIC HISTORY: Patient has a a history of depression and anxiety. Patient claims that he is previously on Valium and Effexor in the past however stopped taking it. Patient denies any previous psychiatric hospitalizations. Patient denies any psychiatric outpatient follow-up. Claims that he did have a suicide attempt overdose in 2016. Past Medical History: Hypertension History of Any Multi-Drug Resistant Organisms: None Reported Past Surgical History: No Surgical Hx Reported Past Psychological History: Anxiety, Depression Smoking Status: Current every day smoker Past Alcohol Use History: None Reported Past Drug Use History: None Reported ALLERGIES: as per EMR. CHEMICAL DEPENDENCY HISTORY: as per HPI. FAMILY PSYCHIATRIC/SUBSTANCE USE HISTORY: denies SOCIAL HISTORY: Patient was born and raised in [facility] and then moved to [place] and has been there for the past 10 years, recently moved back to [place] in December 2022. Claims that he lives with his mother, the living apartment, he is unemployed, he is single, he is no kids. He states that he has been to nursing home in the past for possession of drugs. MENTAL STATUS EXAM: General Appearance: Patient appears to be thin, several tattoos, stated age is alert, pleasant, and cooperative. Patient appears to have fair hygiene and grooming wearing hospital gown with poor eye contact. Behavior: Patient is calmly lying in bed without any agitated behavior. Withdrawn Speech: Patient's speech is fluent and nonpressured. Soft tone Mood/Affect: Patient reports their mood is "depressed and anxious", affect is congruent and constricted Suicidality/Homicidality: Patient denies having any suicidal or homicidal ideation intent or plan. Perceptions: Patient denies any visual hallucinations and denies any auditory hallucinations Though content/process: There is no evidence of any delusional thought content and thought process is linear and goal-directed. [place], vague Memory and concentration: AOX3, grossly intact for the purposes of this session. Can spell "WORLD" backwards Judgment and insight: poor IMPRESSIONS: Major depressive disorder, without psychotic features Anxiety disorder unspecified Suicide attempt by overdose of medications PLAN: -At this time patient DOES meet criteria for inpatient psychiatric admission. -Would recommend the following medication changes/additions: We'll hold off on psychiatric medications and antidepressants until patient is safely transferred to the mental health unit. -Continue 1:1 sitter for safety until patient is safely transferred to the mental health unit. -Cannot leave AMA at this time. Patient will need a petition and certification if attempting to leave AMA. -When medically stable, patient is eligible for transfer to a psych bed when available. -Communicated plan to patient's nurse -Psychiatry will sign off at this time -Please contact with any questions. 03/03/23 14:08 03/03/23 15:26
== END 2023-03-03 18:53 | DRG 918 ==
LOC: EC 18:47 → 3SCARD 19:48 → 5NMEDONC 03-02 13:37
PROVIDERS: ADMIT Hospitalist; ATTEND Hospitalist
DX: T44.7X2A Poisoning by beta-adrenoreceptor antagonists, intentional self-harm, initial encounter (principal); E87.20 Acidosis, unspecified; F32.9 Major depressive disorder, single episode, unspecified; T51.0X1A Toxic effect of ethanol, accidental (unintentional), initial encounter; F17.200 Nicotine dependence, unspecified, uncomplicated; I10 Essential (primary) hypertension; F10.129 Alcohol abuse with intoxication, unspecified; F41.9 Anxiety disorder, unspecified; Z79.899 Other long term (current) drug therapy; Y90.8 Blood alcohol level of 240 mg/100 ml or more
CPT/HCPCS: 36415; 80053; 80143; 80178; 80179; 80306; 80320; 82075; 83605; 83690; 83735; 84100; 85025; 85610; 87635; 93005; 96361; 96374; 96375; 96376; 99285

== ENCOUNTER 2023-03-03 18:09 | Inpatient (IN) | payer SELFPAY ==
[2023-03-03] MEDS ORDERED: MAG HYDROX/AL HYDROX/SIMETH 30 ML CUP PO PRN (18:42)
[2023-03-03] MEDS ORDERED: MAGNESIUM HYDROXIDE 2,400 MG/30 ML CUP PO PRN (18:42)
[2023-03-03] MEDS ORDERED: SUMAtriptan succinate 50 MG TAB PO PRN (18:43)
[2023-03-03] MEDS ORDERED: hydrOXYzine HCL 50 MG/ML 1 ML VIAL IM PRN (20:16)
[2023-03-03] MEDS ORDERED: hydrOXYzine pamoate 25 MG CAP PO PRN (20:16)
[2023-03-03] MEDS ORDERED: IBUPROFEN 400 MG TAB PO PRN (20:22)
[2023-03-03] MEDS: PANTOPRAZOLE 40 MG TABLET PO SCH (21:09)
[2023-03-04] MEDS: NICOTINE 14MG/24HR PATCH TRANSDERM SCH (09:28)
[2023-03-04] MEDS: PANTOPRAZOLE 40 MG TABLET PO SCH (09:28)
[2023-03-04] MEDS: LOSARTAN 50 MG TAB PO SCH (09:29)
[2023-03-04] MEDS: METOPROLOL SUCCINATE (ER) 100 MG TAB.ER.24H PO SCH (09:29)
[2023-03-04 10:59] LABS: VLDL Calculation 14.06 mg/dL (5.00-40.00)
[2023-03-04 11:00] LABS: T4, Free (Free Thyroxine) 1.16 ng/dL (0.80-1.80)
[2023-03-04 11:04] LABS: Chol/HDL Ratio 2.64 Ratio; LDL Cholesterol,Calculated 111.5 mg/dL (0.0-131.0)
[2023-03-04] MEDS: SERTRALINE 25 MG TAB PO SCH (12:40)
--- NOTE | 2023-03-04 13:06 | P.HP ---
Psychiatric H&P - . H&P Date: 03/04/23 History & Physical: Allergies Allergy/AdvReac Type Severity Reaction Status Date / Time No Known Allergies Allergy Verified 03/01/23 19:36 Vital Signs Temp 98.1 F 03/04/23 08:35 Pulse 113 H 03/04/23 08:35 Resp 16 03/04/23 08:35 BP 117/59 03/04/23 08:35 Pulse Ox 98 03/03/23 18:50 FiO2 Intake & Output 03/03/23 03/04/23 03/04/23 18:59 06:59 18:59 Weight 72.717 kg 03/04/23 08:58 IDENTIFYING DATA: Patient is a This patient is a 37-year-old male, currently lives with his mother in an apartment, he is unemployed, he is single, he has no kids. HPI: Patient presented to the hospital Patient was brought into the hospital on 03/01. According to ER report, "Patient presents with overdose today. Patient is here in the emergency department for overdose on for medications including beta maureen blood pressure medications as well as drinking alcohol today and suicide attempt. Patient himself feels weak lightheaded and sometimes confused" patient was seen today at the bedside and appeared to be depressed and his affect. He states that he overdosed on medications including his blood pressure medications, metoprolol, losartan, thyroid pills, Vistaril and also drank alcohol. His blood alcohol level was 267 and his urine drug screen was positive for THC. He did state that it was an intentional overdose to kill himself. He claims he has been feeling suicidal for the past several weeks and finally gathered courage to end his life. 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 States that him and his mother moved from [place] back to [place] in December 2022 and states that he had a difficult time in [place]. Claims that he is feeling isolated at this time, feels overwhelmed and helpless. Claims that he is having depression and anxiety. States that his sleep is poor, appetite is fair. Patient was transferred to the [facility] last night around 1899. Upon todays interview, patient states that he is feeling a little better today, however, is having a bad pain in his lower left side of his back. Patient states he has no history of kidney stones, but is having a problem "getting started" with urination. Will order an xray. Patient states that he did not sleep much last night, however, that is not uncommon for him. Patient claims he is not a fan of antidepressants, and that "they don't work for me". Feels his depression is "situational". Minimizes need for treatment, content writer reiterated what has happened is a significant event, and spoke with patient about the need for treatment, patient hesitantly agreed to taking medication. At this time patient denies any suicidal or homical ideations, intent or plan. Patient denies any auditory, visual hallucinations and denies any paranoia or delusions. Patients admits to using THC occasionally use, cigarettes daily, denies any alcohol use. PAST PSYCHIATRIC HISTORY: Patient has a a history of depression and anxiety. Patient claims that he is previously on Valium and Effexor in the past however stopped taking it. Patient denies any previous psychiatric hospitalizations. Patient denies any psychiatric outpatient follow-up. Claims that he did have a suicide attempt overdose in 2017. Past Medical History: Hypertension History of Any Multi-Drug Resistant Organisms: None Reported Past Surgical History: No Surgical Hx Reported Past Psychological History: Anxiety, Depression Smoking Status: Current every day smoker Past Alcohol Use History: None Reported Past Drug Use History: None Reported ALLERGIES: as per EMR CHEMICAL DEPENDENCY HISTORY: as per HPI FAMILY PSYCHIATRIC/SUBSTANCE USE HISTORY: denies SOCIAL HISTORY: Patient was born and raised in [place], [place], and then moved to [place] and has been there for the past 10 years, recently moved back to [place] in December 2022. Claims that he lives with his mother, in an apartment, he is unemployed, he is single, he is no kids. He states that he has been to [facility] in the past for possession of drugs. MENTAL STATUS EXAM: General Appearance: Patient appears to be thin, stated age, is alert, pleasant, and cooperative. Heavily tattooed. Patient appears to have fair hygiene and grooming wearing street clothes with better eye contact. Behavior: Patient is calmly sitting in the chair, without any agitated behavior. Withdrawn/minimizing need for treatment Speech: Patient's speech is fluent and nonpressured. Soft tone Mood/Affect: Patient reports their mood is "depressed", affect is congruent and constricted Suicidality/Homicidality: Patient denies having any suicidal or homicidal ideation intent or plan. Perceptions: Patient denies any visual hallucinations and denies any auditory hallucinations Though content/process: There is no evidence of any delusional thought content and thought process is linear and goal-directed. [place], vague, minimizing Memory and concentration: AOX3, grossly intact for the purposes of this session. Can spell "WORLD" backwards Judgment and insight: poor STRENGTHS/WEAKNESSES: strength is that patient is resilient. Weakness is that patient has poor judgment and is impulsive INTELLECT: average IMPRESSIONS: Major depressive disorder, without psychotic features Anxiety disorder unspecified Suicide attempt by overdose of medications PLAN: -Patient is admitted under voluntary status to MHU for stabilization of psychiatric symptoms and safety. Patient has signed adult voluntary form and medication consent and is placed in patient's chart. -Medications : Will start patient Zoloft 25mg qd for mood/anxiety and Melatonin 5mg qhs for sleep Visteral 25mg q 6hours prn for anxiety -KUB X-ray to r/o kidney stones -Ativan and Haldol PRN for agitation/aggression -Patient was counselled on substance abuse and desired to cut back on use -Patient was informed of the risks, benefits and side effects of the medication and patient verbally consented to taking the medications. Patient signed med consent form and was placed in chart. -Internal Medicine consult to perform medical evaluation and physical. -NRT -nicotine patch -SW on board for discharge planning. Encourage patient to participate in groups to work on coping skills. 03/04/23 13:05
[2023-03-04] MEDS: ACETAMINOPHEN TAB 325 MG TAB PO PRN ×2 (14:15→20:49)
--- NOTE | 2023-03-04 15:14 | XR ---
EXAMINATION TYPE: XR KUB DATE OF EXAM: 03/04/2023 COMPARISON: NONE HISTORY: Pain TECHNIQUE: One view abdominal series FINDINGS: The osseous structures are intact. The bowel gas pattern is nonspecific. Retained fecal debris throu ghout the colon. Vascular calcifications in the pelvis. Spina bifida occulta of the sacrum. IMPRESSION: 1. Nonspecific abdomen. Correlate for constipation.
[2023-03-04] MEDS ORDERED: MELATONIN 5 MG TABLET PO SCH (21:00)
[2023-03-05] MEDS: METOPROLOL SUCCINATE (ER) 100 MG TAB.ER.24H PO SCH (08:05)
[2023-03-05] MEDS: PANTOPRAZOLE 40 MG TABLET PO SCH (08:05)
[2023-03-05] MEDS: NICOTINE 14MG/24HR PATCH TRANSDERM SCH (08:05)
[2023-03-05] MEDS: LOSARTAN 50 MG TAB PO SCH (08:05)
[2023-03-05] MEDS: SERTRALINE 25 MG TAB PO SCH (08:05)
[2023-03-05] MEDS: ACETAMINOPHEN TAB 325 MG TAB PO PRN (08:06)
--- NOTE | 2023-03-05 10:29 | P.PN ---
Progress Note - Text Progress Note Date: 03/05/23 Interval History: Patient was seen in group and was directable and agreeable to speak with copywriter in the office. Patient states that today he's feeling "about the same". Having a bit of depression and anxiety. States that he's had depression for a long time, and he don't expect it to go away quickly. Patient is going to groups. appears to be more talkative. States his sleep was very poor last night, and that it took a long time to fall asleep, and stay asleep. Spoke to patient about discontinuing melatonin, and using benedryl. Patient agreeable.pitch worker helping him to get his [place] medicaid restarted, as patient has resided in [place] for some time.. Patient states his appetite is fair. At this time patient denies any suicidal or homical ideations, intent or plan. Patient denies any auditory, visual hallucinations and denies any paranoia or delusions. Patient denies any side effects from the medications and has been compliant with meds. Mental Status Exam: General Appearance: Patient appears to be thin, stated age, is alert, pleasant, and cooperative. Heavily tattooed. Patient appears to have fair hygiene and grooming wearing street clothes with better eye contact. Behavior: Patient is calmly sitting in the chair, without any agitated behavior. minimizing need for treatment, mildly improving Speech: Patient's speech is fluent and nonpressured. speaking much more today, aware of need of treatment Mood/Affect: Patient reports their mood is "depressed", affect is congruent and constricted, mildly improving Suicidality/Homicidality: Patient denies having any suicidal or homicidal ideation intent or plan. Perceptions: Patient denies any visual hallucinations and denies any auditory hallucinations Though content/process: There is no evidence of any delusional thought content and thought process is linear and goal-directed. [place], vague, minimizing, mildly improving Memory and concentration: AOX3, grossly intact for the purposes of this session. Judgment and insight: poor, mildly improving IMPRESSIONS: Major depressive disorder, without psychotic features Anxiety disorder unspecified Suicide attempt by overdose of medications PLAN: -Patient is admitted under voluntary status to [facility] for stabilization of psychiatric symptoms and safety. Patient has signed adult voluntary form and medication consent and is placed in patient's chart. -Medications : increase Zoloft 50mg qd for mood/anxiety, d/c Melatonin , add benedryl 50mg qhs scheduled for sleep. Visteral 25mg q 6hours prn for anxiety/sleep -Ativan and Haldol PRN for agitation/aggression -NRT -nicotine patch -SW on board for discharge planning. Encourage patient to participate in groups to work on coping skills. likely discharge wednesday vs wednesday back home if he continues to improve.
[2023-03-05] MEDS: hydrOXYzine pamoate 25 MG CAP PO PRN ×2 (11:46→20:39)
--- NOTE | 2023-03-05 12:27 | P.MDCNMH ---
History of Present Illness H&P Date: 03/05/23 History of present illness; patient is a 37-year-old gentleman with past medical history significant for depression, hypertension who presented to the ER for an attempted suicide attempt and overdose. Patient states that he lives with his mother who he is the primary caregiver off. Patient stated he has been feeling very stressed and depressed for the last week. Patient was having loss of appetite and lack of interest in normal activities. Patient tried to commit suicide by overdosing on his blood pressure medications which was metoprolol and drinking alcohol at the same time. Patient was admitted to medicine service, psych eval the patient, recommended that patient needs inpatient psychiatric admission once medically cleared. Patient was discharged inpatient psych yesterday REVIEW OF SYSTEMS: CONSTITUTIONAL: No fever, no malaise, no fatigue. HEENT: No recent visual problems or hearing problems. Denied any sore throat. CARDIOVASCULAR: No chest pain, orthopnea, PND, no palpitations, no syncope. PULMONARY: No shortness of breath, no cough, no hemoptysis. GASTROINTESTINAL: No diarrhea, no nausea, no vomiting, no abdominal pain. NEUROLOGICAL: No headaches, no weakness, no numbness. HEMATOLOGICAL: Denies any bleeding or petechiae. GENITOURINARY: Denies any burning micturition, frequency, or urgency. MUSCULOSKELETAL/RHEUMATOLOGICAL: Denies any joint pain, swelling, or any muscle pain. ENDOCRINE: Denies any polyuria or polydipsia. The rest of the 14-point review of systems is negative. PHYSICAL EXAMINATION: GENERAL: The patient is alert and oriented x3, not in any acute distress. Well developed, well nourished. HEENT: Pupils are round and equally reacting to light. EOMI. No scleral icterus. No conjunctival pallor. Normocephalic, atraumatic. No pharyngeal erythema. No thyromegaly. CARDIOVASCULAR: S1 and S2 present. No murmurs, rubs, or gallops. PULMONARY: Chest is clear to auscultation, no wheezing or crackles. ABDOMEN: Soft, nontender, nondistended, normoactive bowel sounds. No palpable organomegaly. MUSCULOSKELETAL: No joint swelling or deformity. EXTREMITIES: No cyanosis, clubbing, or pedal edema. NEUROLOGICAL: Gross neurological examination did not reveal any focal deficits. SKIN: No rashes. Assessment and plan Suicidal attempt Drug overdose Lactic acidosis Major depression Hypertension Monitor vital signs Elopement precautions Suicide precautions Continue Toprol and losartan Continue psych meds per psychiatry team Labs and medication were reviewed.. Continue same treatment. Continue with symptomatic treatment. Resume home medication. Monitor labs and vitals. DVT and GI prophylaxis. Further recommendations as per clinical course of the patient Dictation was produced using [employer] dictation software. please excuse any grammatical, word or spelling errors. Past Medical History Past Medical History: Hypertension Additional Past Medical History / Comment(s): Migraines History of Any Multi-Drug Resistant Organisms: None Reported Past Surgical History: No Surgical Hx Reported Additional Past Surgical History / Comment(s): oral surgery, deviated septum surgery Past Psychological History: Anxiety, Depression Smoking Status: Current every day smoker Past Alcohol Use History: None Reported Past Drug Use History: Marijuana Additional Drug Use History / Comment(s): occasional marijuana. Drinks ETOH rarely - Past Family History Mother Family Medical History: COPD, Pneumonia Additional Family Medical History / Comment(s): Emphysema, had recent heart cath Medications and Allergies Home Medications Medication Instructions Recorded Confirmed Type Losartan [Cozaar] 50 mg PO DAILY 03/01/23 03/03/23 History Metoprolol Succinate (ER) [Toprol 100 mg PO DAILY 03/01/23 03/03/23 History XL] Rizatriptan Odt [Maxalt [employer]] 10 mg PO BID PRN 03/01/23 03/03/23 History Allergies Allergy/AdvReac Type Severity Reaction Status Date / Time No Known Allergies Allergy Verified 03/01/23 19:36 Physical Exam Vitals: Vital Signs Temp Pulse Resp BP 03/05/23 07:20 97.9 F 76 16 120/81 Cranial Nerve Examination - Cranial Nerves Cranial Nerve II- Optic: Intact (Cranial nerves II-12 intact) Cranial Nerve III- Oculomotor: Intact Cranial Nerve IV- Trochlear: Intact Cranial Nerve V- Trigeminal: Intact Cranial Nerve - Abducens: Intact Cranial Nerve VII- Facial: Intact Cranial Nerve VIII- Auditory: Intact Cranial Nerve IX- Glossopharyngeal: Intact Cranial Nerve X- Vagus: Intact Cranial Nerve XI- Accessory: Intact Cranial Nerve XII- Hypoglossal: Intact Results Labs: Abnormal Lab Results - Last 24 Hours (Table) 03/04/23 Range/Units 06:00 Cholesterol 202.00 H (0.00-200.00) mg/dL HDL Cholesterol 76.40 H (40.00-60.00) mg/dL
[2023-03-05] MEDS: diphenhydrAMINE 50 MG CAP PO SCH (20:39)
[2023-03-06] MEDS: NICOTINE 14MG/24HR PATCH TRANSDERM SCH (08:50)
[2023-03-06] MEDS: PANTOPRAZOLE 40 MG TABLET PO SCH (08:51)
[2023-03-06] MEDS: SERTRALINE 50 MG TAB PO SCH (08:52)
[2023-03-06] MEDS: LOSARTAN 50 MG TAB PO SCH (08:52)
[2023-03-06] MEDS: METOPROLOL SUCCINATE (ER) 100 MG TAB.ER.24H PO SCH (08:52)
[2023-03-06] MEDS: hydrOXYzine pamoate 25 MG CAP PO PRN ×3 (08:53→22:33)
--- NOTE | 2023-03-06 10:46 | P.PN ---
Progress Note - Text Progress Note Date: 03/06/23 Interval History: Patient was seen today psychiatric follow up. he states that he is doing a bit better today in terms of mood and anxiety. states that he is tolerating the zoloft a bit better today.Patient is going to groups. claims that he slept a bit better last night with the benadryl. Patient states his appetite is fair. more future oriented today. At this time patient denies any suicidal or homical ideations, intent or plan. Patient denies any auditory, visual hallucinations and denies any paranoia or delusions. Patient denies any side effects from the medications and has been compliant with meds. Mental Status Exam: General Appearance: Patient appears to be thin, stated age, is alert, pleasant, and cooperative. Heavily tattooed. Patient appears to have fair hygiene and grooming wearing street clothes with better eye contact. Behavior: Patient is calmly sitting in the chair, without any agitated behavior, mildly improving Speech: Patient's speech is fluent and nonpressured. speaking much more today, aware of need of treatment Mood/Affect: Patient reports their mood is "a biut better today", affect is congruent and constricted, mildly improving Suicidality/Homicidality: Patient denies having any suicidal or homicidal ideation intent or plan. Perceptions: Patient denies any visual hallucinations and denies any auditory hallucinations Though content/process: There is no evidence of any delusional thought content and thought process is linear and goal-directed. [place], vague, mildly improving Memory and concentration: AOX3, grossly intact for the purposes of this session. Judgment and insight: poor, mildly improving IMPRESSIONS: Major depressive disorder, without psychotic features Anxiety disorder unspecified Suicide attempt by overdose of medications PLAN: -Patient is admitted under voluntary status to [facility] for stabilization of psychiatric symptoms and safety. Patient has signed adult voluntary form and medication consent and is placed in patient's chart. -Medications : Zoloft 50mg qd for mood/anxiety, d/c Melatonin ,benedryl 50mg qhs scheduled for sleep. Visteral 25mg q 6hours prn for anxiety/sleep -Ativan and Haldol PRN for agitation/aggression -NRT -nicotine patch -SW on board for discharge planning. Encourage patient to participate in groups to work on coping skills. likely discharge wednesday vs wednesday back home if he continues to improve.
[2023-03-06] MEDS: diphenhydrAMINE 50 MG CAP PO SCH (21:26)
[2023-03-07] MEDS: NICOTINE 14MG/24HR PATCH TRANSDERM SCH (08:50)
[2023-03-07] MEDS: SERTRALINE 50 MG TAB PO SCH (08:51)
[2023-03-07] MEDS: METOPROLOL SUCCINATE (ER) 100 MG TAB.ER.24H PO SCH (08:51)
[2023-03-07] MEDS: LOSARTAN 50 MG TAB PO SCH (08:51)
[2023-03-07] MEDS: PANTOPRAZOLE 40 MG TABLET PO SCH ×2 (08:51→08:53)
[2023-03-07] MEDS: hydrOXYzine pamoate 25 MG CAP PO PRN ×2 (08:54→17:10)
[2023-03-07] MEDS ORDERED: MIRTAZAPINE 15 MG TAB PO PRN (11:12)
--- NOTE | 2023-03-07 11:17 | P.PN ---
Progress Note - Text Progress Note Date: 03/07/23 Interval History: Patient was seen today psychiatric follow up as he was wandering the hallways. Patient claims that he still feels about the same still fairly depressed and anxious. Claims that he feels that he has not shown much improvement from Zoloft. He has been tolerating it fairly well. [facility] at the [facility] did take some time to kick in last ataxia help him with sleep and we spoke about adding Remeron as needed for sleep which is okay with. Patient is going to groups. Patient states his appetite is fair. more future oriented today. At this time patient denies any suicidal or homical ideations, intent or plan. Patient denies any auditory, visual hallucinations and denies any paranoia or delusions. Patient denies any side effects from the medications and has been compliant with meds. Mental Status Exam: General Appearance: Patient appears to be thin, stated age, is alert, pleasant, and cooperative. Heavily tattooed. Patient appears to have fair hygiene and grooming wearing street clothes with better eye contact. Behavior: Patient is calmly sitting in the chair, without any agitated behavior, mildly improving Speech: Patient's speech is fluent and nonpressured. speaking much more today Mood/Affect: Patient reports their mood is "the same, still depressed and anxiou s", affect is congruent and constricted, mildly improving Suicidality/Homicidality: Patient denies having any suicidal or homicidal ideation intent or plan. Perceptions: Patient denies any visual hallucinations and denies any auditory hallucinations Though content/process: There is no evidence of any delusional thought content and thought process is linear and goal-directed. [place], vague, mildly improving Memory and concentration: AOX3, grossly intact for the purposes of this session. Judgment and insight: poor, mildly improving IMPRESSIONS: Major depressive disorder, without psychotic features Anxiety disorder unspecified Suicide attempt by overdose of medications PLAN: -Patient is admitted under voluntary status to [facility] for stabilization of psychiatric symptoms and safety. Patient has signed adult voluntary form and medication consent and is placed in patient's chart. -Medications : increase Zoloft 100mg qd for mood/anxiety, benedryl 50mg qhs scheduled for sleep. added remeron 15 mg qhs prn insomnia/ Visteral 25mg q 6hours prn for anxiety/sleep -Ativan and Haldol PRN for agitation/aggression -NRT -nicotine patch -SW on board for discharge planning. Encourage patient to participate in groups to work on coping skills. likely discharge wednesday-wednesday back home if he continues to improve.
[2023-03-07] MEDS ORDERED: NICOTINE GUM (POLACRILEX) 2 MG GUM BUCCAL PRN (14:29)
[2023-03-07] MEDS: diphenhydrAMINE 50 MG CAP PO SCH (21:30)
[2023-03-08] MEDS: PANTOPRAZOLE 40 MG TABLET PO SCH (08:59)
[2023-03-08] MEDS: METOPROLOL SUCCINATE (ER) 100 MG TAB.ER.24H PO SCH (09:00)
[2023-03-08] MEDS: NICOTINE 14MG/24HR PATCH TRANSDERM SCH (09:00)
[2023-03-08] MEDS: LOSARTAN 50 MG TAB PO SCH (09:00)
[2023-03-08] MEDS: SERTRALINE 100 MG TAB PO SCH (09:00)
[2023-03-08] MEDS ORDERED: SERTRALINE 25 MG TAB PO SCH (09:00)
[2023-03-08] MEDS: ACETAMINOPHEN TAB 325 MG TAB PO PRN ×2 (09:02→22:19)
--- NOTE | 2023-03-08 09:54 | P.PN ---
Progress Note - Text Progress Note Date: 03/08/23 Interval History: Patient was seen today psychiatric follow up as he was wandering the hallways. Patient claims that he is feeling "all right" . Claims that he's feeling more hopefull with the medication helping him out. States his mood and anxiety is getting better than when he first came in. He has been tolerating his med adjustment fairly well. Patient is going to groups. Patient states that he always has anxiety, however, the medication is helping. States he's looking forward to the future. States his sleep was alright, just had a hard time falling asleep. Patient states his appetite is fair. Patient also states he does not want to hurt himself, and he never has wanted to hurt himself, he just don't know what had happened the day he came to the hospital, he just had a "break down" At this time patient denies any suicidal or homical ideations, intent or plan. Patient denies any auditory, visual hallucinations and denies any paranoia or delusions. Patient denies any side effects from the medications and has been compliant with meds. Mental Status Exam: General Appearance: Patient appears to be thin, stated age, is alert, pleasant, and cooperative. Heavily tattooed. Patient appears to have fair hygiene and grooming wearing street clothes with better eye contact. Behavior: Patient is calmly sitting in the chair, without any agitated behavior, mildly improving Speech: Patient's speech is fluent and nonpressured. speaking much more today Mood/Affect: Patient reports their mood is "getting better", affect is congruent and constricted, mildly improving Suicidality/Homicidality: Patient denies having any suicidal or homicidal ideation intent or plan. Perceptions: Patient denies any visual hallucinations and denies any auditory hallucinations Though content/process: There is no evidence of any delusional thought content and thought process is linear and goal-directed. [place], vague, mildly improving Memory and concentration: AOX3, grossly intact for the purposes of this session. Judgment and insight: improving IMPRESSIONS: Major depressive disorder, without psychotic features Anxiety disorder unspecified Suicide attempt by overdose of medications PLAN: -Patient is admitted under voluntary status to [facility]HU for stabilization of psychiatric symptoms and safety. Patient has signed adult voluntary form and medication consent and is placed in patient's chart. -Medications : Zoloft 100mg qd for mood/anxiety, benedryl 50mg qhs scheduled for sleep. remeron 15 mg qhs prn insomnia, Visteral 25mg q 6hours prn for anxiety/sleep -Ativan and Haldol PRN for agitation/aggression -NRT -nicotine patch -SW on board for discharge planning. Encourage patient to participate in groups to work on coping skills. likely discharge tomorrow vs wednesday, back home if he continues to improve.
[2023-03-08] MEDS: hydrOXYzine pamoate 25 MG CAP PO PRN ×2 (10:14→22:18)
[2023-03-08] MEDS: diphenhydrAMINE 50 MG CAP PO SCH (22:16)
[2023-03-09 05:31] VITALS: RESP 13; TEMP 97.2
[2023-03-09] MEDS: NICOTINE 14MG/24HR PATCH TRANSDERM SCH (08:35)
[2023-03-09] MEDS: PANTOPRAZOLE 40 MG TABLET PO SCH (08:36)
[2023-03-09] MEDS: ACETAMINOPHEN TAB 325 MG TAB PO PRN (08:36)
[2023-03-09] MEDS: SERTRALINE 100 MG TAB PO SCH (08:37)
[2023-03-09] MEDS: LOSARTAN 50 MG TAB PO SCH (08:37)
[2023-03-09] MEDS: METOPROLOL SUCCINATE (ER) 100 MG TAB.ER.24H PO SCH (08:37)
[2023-03-09 08:45] VITALS: BP 141/82; PULSE 61
--- NOTE | 2023-03-09 11:20 | P.DS ---
Providers Date of admission: 03/03/23 18:54 Expected date of discharge: 03/09/23 Attending physician: Chucho Boykin MD Consults: 03/05/23 05:10 Consult Physician Routine Consulting Provider: [facility] Hospitalists Consult Reason/Comments: medical H&P Do you want consulting provider notified?: Yes Primary care physician: Stated None - Discharge Diagnosis(es) (1) Major depressive disorder without psychotic features Current Visit: Yes Status: Acute Priority: High (2) Anxiety disorder Current Visit: Yes Status: Acute Priority: Medium (3) Suicide attempt Current Visit: Yes Status: Acute Priority: High Hospital Course: Admission HPI: Admission note was completed by hand sign writer "Patient presented to the hospital Patient was brought into the hospital on 03/01. According to ER report, "Patient presents with overdose today. Patient is here in the emergency department for overdose on for medications including beta maureen blood pressure medications as well as drinking alcohol today and suicide attempt. Patient himself feels weak lightheaded and sometimes confused" patient was seen today at the bedside and appeared to be depressed and his affect. He states that he overdosed on medications including his blood pressure medications, metoprolol, losartan, thyroid pills, Vistaril and also drank alcohol. His blood alcohol level was 267 and his urine drug screen was positive for THC. He did state that it was an intentional overdose to kill himself. He claims he has been feeling suicidal for the past several weeks and finally gathered courage to end his life. 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 States that him and his mother moved from [place] back to [place] in December 2022 and states that he had a difficult time in [place]. Claims that he is feeling isolated at this time, feels overwhelmed and helpless. Claims that he is having depression and anxiety. States that his sleep is poor, appetite is fair. Patient was transferred to the [facility] last night around 0. Upon todays interview, patient states that he is feeling a little better today, however, is having a bad pain in his lower left side of his back. Patient states he has no history of kidney stones, but is having a problem "getting started" with urination. Will order an xray. Patient states that he did not sleep much last night, however, that is not uncommon for him. Patient claims he is not a fan of antidepressants, and that "they don't work for me". Feels his depression is "situational". Minimizes need for treatment, hand sign writer reiterated what has happened is a significant event, and spoke with patient about the need for treatment, patient hesitantly agreed to taking medication. At this time patient denies any suicidal or homical ideations, intent or plan. Patient denies any auditory, visual hallucinations and denies any paranoia or delusions. Patients admits to using THC occasionally use, cigarettes daily, denies any alcohol use." Hospital course: Upon admission to the unit patient was directable and agreeable to commence treatment and signed adult voluntary form. Patient got along well with other patients on the unit and followed unit protocol. Patient was compliant with the medications and denied any side effects throughout hospital course. Patient was started on Zoloft increased her dose of 400 mg daily for mood/anxiety, Benadryl 50 mg daily at bedtime scheduled for sleep, Remeron 15 mg daily at bedtime when necessary for insomnia, Vistaril when necessary for anxiety. Patient spoke of his stressors and engaged in therapy both group and individual. Patient was also seen by medical team for history and physical exam. Throughout the course of the hospitalization patient gradually improved with regards to mood, anxiety, suicidal thoughts, sleep and became more future oriented with improved insight and judgment. On the day of discharge patient denied any suicidal or homicidal ideations intent or plan denied any auditory or visual hallucinations. Patient endorsed wanting to live for his health and family. The patient denied any access to guns or weapons. Patient denied any paranoia and did not endorse any delusions. Patient does not have a significant history of substance abuse and was counseled on abstaining from all substances including alcohol and marijuana. Patient was also counseled on the medications and need for regular compliance and was encouraged to follow-up with their outpatient appointment for mental health and also for primary care. The patient did not sign a release of information for social media sr strategy manager to communicate with his mother. Patient ensures that there is no guns or weapons that he is access to. He'll be discharged home today with [facility] follow[facility]. Mental status exam: General Appearance: Patient appears to have several tattoos, stated age is alert, pleasant, and cooperative. Patient is in no acute distress and has improved hygiene and grooming Behavior: Patient is calmly seated without any agitated behavior. Speech: Patient's speech is fluent and nonpressured. Mood/Affect: Patient reports their mood is "good", affect is congruent and euthymic. Suicidality/Homicidality: Patient denies having any suicidal or homicidal ideation intent or plan. Perceptions: Patient denies any auditory or visual hallucinations. Though content/process: There is no evidence of any delusional thought content and thought process is linear and goal-directed. more future oriented Memory and concentration: AOX3, grossly intact for the purposes of this session. Can spell "WORLD" backwards correctly. Judgment and insight: improved with guarded prognosis Impression: Major depressive disorder, without psychotic features Anxiety disorder unspecified Suicide attempt Plan: -Continue with discharge today as patient has improved and stabilized psychiatrically and is not currently an imminent threat to himself and/or others. Patient will remain at chronically elevated risk for harm to self and/or others due to his impulsivity -Continue medications: Zoloft 100 mg daily for mood/anxiety, Benadryl 50 mg daily at bedtime scheduled for sleep, Remeron 15 mg daily at bedtime when necessary for insomnia, Vistaril daily when necessary for anxiety. -Patient was counseled on the need for medication compliance and appropriate follow-up at mental health and also primary care for medical issues. Patient verbalized understanding and agreed. -Social work to help Sully patient's discharge today. Social work also to arrange for patients follow up appointments with [facility] for [facility] care along with follow up with primary care provider. -Patient counseled on abstaining from recreational drugs and marijuana and alcohol. Was informed/educated on the adverse effects on their physical and mental health. Patient verbally agreed and understood]. -Patient was instructed to return to the hospital or seek immediate medical care if their psychiatric or medical symptoms do worsen or reoccur. Allergies Allergy/AdvReac Type Severity Reaction Status Date / Time No Known Allergies Allergy Verified 03/01/23 19:[address] Glu mg/dL 105 mg/dL 03/04/23 06:00 Hemoglobin A1c 5.3 % (<=6.0) 03/04/23 06:00 Triglycerides 70.30 mg/dL (0.00-149.00) 03/04/23 06:00 Cholesterol 202.00 mg/dL (0.00-200.00) H 03/04/23 06:00 LDL Cholesterol, Calc 111.5 mg/dL (0.0-131.0) 03/04/23 06:00 VLDL Cholesterol, Calc 14.06 mg/dL (5.00-40.00) 03/04/23 06:00 HDL Cholesterol 76.40 mg/dL (40.00-60.00) H 03/04/23 06:00 Cholesterol/HDL Ratio 2.64 Ratio 03/04/23 06:00 TSH 1.500 UIU/ML (0.350-5.500) 03/04/23 06:00 Free T4 1.16 ng/dL (0.80-1.80) 03/04/23 06:00 SARS-CoV-2 (PCR) Not Detected (Not Detectd) 03/07/23 20:40 Vital Signs Temp 97.2 F L 03/09/23 05:26 Pulse 61 03/09/23 08:38 Resp 13 03/09/23 05:26 BP 141/82 03/09/23 08:38 Pulse Ox 98 03/03/23 18:50 FiO2 Patient Condition at Discharge: Stable Plan - Discharge Summary New Discharge Prescriptions: New Nicotine Gum (Polacrilex) [Nicorette] 2 mg BUCCAL Q4HR PRN pieceofgum PRN Reason: Nicotine Cravings hydrOXYzine pamoate [Vistaril] 50 mg PO DAILY PRN 30 Days #30 cap PRN Reason: Anxiety diphenhydrAMINE [Benadryl] 50 mg PO HS 30 Days #30 cap Nicotine 14Mg/24Hr Patch [Habitrol] 1 patch TRANSDERM DAILY 14 Days #14 patch Mirtazapine [Remeron] 15 mg PO HS PRN 14 Days #14 tab PRN Reason: Insomnia Sertraline [Zoloft] 100 mg PO DAILY 30 Days #30 tab Continue Rizatriptan Odt [Maxalt GRADUATE RECRUITER] 10 mg PO BID PRN PRN Reason: Migraine Headache Metoprolol Succinate (ER) [Toprol XL] 100 mg PO DAILY Losartan [Cozaar] 50 mg PO DAILY Discharge Medication List Losartan [Cozaar] 50 mg PO DAILY 03/01/23 [History] Metoprolol Succinate (ER) [Toprol XL] 100 mg PO DAILY 03/01/23 [History] Rizatriptan Odt [Maxalt GRADUATE RECRUITER] 10 mg PO BID PRN 03/01/23 [History] Mirtazapine [Remeron] 15 mg PO HS PRN 14 Days #14 tab 03/09/23 [Rx] Nicotine 14Mg/24Hr Patch [Habitrol] 1 patch TRANSDERM DAILY 14 Days #14 patch 03/09/23 [Rx] Nicotine Gum (Polacrilex) [Nicorette] 2 mg BUCCAL Q4HR PRN pieceofgum 03/09/23 [Rx] Sertraline [Zoloft] 100 mg PO DAILY 30 Days #30 tab 03/09/23 [Rx] diphenhydrAMINE [Benadryl] 50 mg PO HS 30 Days #30 cap 03/09/23 [Rx] hydrOXYzine pamoate [Vistaril] 50 mg PO DAILY PRN 30 Days #30 cap 03/09/23 [Rx] Patient Instructions/Handouts: How to Stop Smoking (DC), Depression (DC) Activity/Diet/Wound Care/Special Instructions: Avoid the use of street drugs and alcohol. Take all medications as prescribed. When you are in need of refills on your medications, please contact your medical provider and/or outpatient psychiatrist/provider to have this done. Please go to your scheduled outpatient appointment for aftercare treatment. If symptoms return or become worse, call the crisis line at and/or go to the nearest emergency room for evaluation. National Suicide Hotline 820. Discharge Disposition: HOME SELF-CARE
== END 2023-03-09 13:54 | disposition home or self-care (01) | DRG 881 ==
LOC: 3MHU 18:54
PROVIDERS: ADMIT Psychiatry & Neurology Psychiatry; ATTEND Psychiatry & Neurology Psychiatry
DX: F32.9 Major depressive disorder, single episode, unspecified (principal); E87.20 Acidosis, unspecified; Z11.52 Encounter for screening for COVID-19; Z28.310 Unvaccinated for COVID-19; F41.9 Anxiety disorder, unspecified; I10 Essential (primary) hypertension; G47.00 Insomnia, unspecified; T50.912D Poisoning by multiple unspecified drugs, medicaments and biological substances, intentional self-harm, subsequent encounter; F17.210 Nicotine dependence, cigarettes, uncomplicated; Z71.6 Tobacco abuse counseling; Z79.899 Other long term (current) drug therapy; Z71.51 Drug abuse counseling and surveillance of drug abuser; Z71.41 Alcohol abuse counseling and surveillance of alcoholic
CPT/HCPCS: 74018; 80061; 83036; 84439; 84443; 87635

== ENCOUNTER 2023-12-19 10:12 | Emergency (ER) | payer OTHER ==
[2023-12-19 10:18] VITALS: TEMP 99.3
[2023-12-19] MEDS: SODIUM CHLORIDE 0.9% 1,000 ML IV STA (10:55)
[2023-12-19] MEDS: LORazepam 2 MG/ML INJ IV STA (10:56)
[2023-12-19 10:59] LABS: Basophils # (A) 0.1 k/uL (0-0.2); Basophils % (A) 0 %; Eosinophils # (A) 0.3 k/uL (0-0.7); Eosinophils % (A) 2 %; HCT 44.3 % (39.0-53.0); HGB 14.8 gm/dL (13.0-17.5); Lymphocytes # (A) 2.4 k/uL (1.0-4.8); Lymphocytes % (A) 16 %; MCH 28.3 pg (25.0-35.0); MCHC 33.3 g/dL (31.0-37.0); MCV 84.9 fL (80.0-100.0); Mean Platelet Volume 8.7; Monocytes # (A) 0.5 k/uL (0-1.0); Monocytes % (A) 3 %; Neutrophils # (A) 11.2 k/uL (1.3-7.7); Neutrophils % (A) 76 %; Platelet Count 509 k/uL (150-450); RBC 5.22 m/uL (4.30-5.90); RDW 13.5 % (11.5-15.5); WBC 14.6 k/uL (3.8-10.6)
--- NOTE | 2023-12-19 11:06 | XR ---
EXAMINATION TYPE: XR chest 2V DATE OF EXAM: 12/19/2023 COMPARISON: NONE HISTORY: Chest pain TECHNIQUE: Frontal and lateral views of the chest are obtained. FINDINGS: There is no focal air space opacity, pleural effusion, or pneumothorax seen. The cardiac silhouette size is within normal limits. The osseous structures are intact. IMPRESSION: No acute cardiopulmonary process. [facility], Workstation: [facility], 12/19/2023 11:04 AM
[2023-12-19 11:09] LABS: ALT 25 U/L (4-49); African American GFR (CKD) >90 (>60 ml/min/1.73 sqM); Albumin 4.5 g/dL (3.5-5.0); Anion Gap 8 mmol/L; Blood Urea Nitrogen 24 mg/dL (9-20); Calcium 9.9 mg/dL (8.4-10.2); Carbon Dioxide 25 mmol/L (22-30); Chloride 102 mmol/L (98-107); Glucose 93 mg/dL (74-99); Non-African American GFR(CKD) >90 (>60 ml/min/1.73 sqM); Sodium 135 mmol/L (137-145); Total Bilirubin 0.8 mg/dL (0.2-1.3); Total Protein 7.3 g/dL (6.3-8.2)
[2023-12-19 11:13] LABS: AST 40 U/L (17-59); Alkaline Phosphatase 36 U/L (38-126); Magnesium 1.8 mg/dL (1.6-2.3)
[2023-12-19 11:20] LABS: INR 0.9 (<1.2); Partial Thromboplastin Time 25.7 sec (22.0-30.0); Prothrombin Time 10.2 sec (10.0-12.5)
[2023-12-19] MEDS: IPRATROPIUM-ALBUTEROL 3 ML NEB INHALATION STA (12:35)
[2023-12-19 12:38] VITALS: RESP 16
[2023-12-19] MEDS: methylPREDNISolone SOD SUCCI 40 MG/ML 1 ML VIAL IV STA (12:41)
--- NOTE | 2023-12-19 13:03 | ED ---
General Adult HPI - General Chief complaint: Chest Pain Stated complaint: Headaches, SOB Time Seen by Provider: 12/19/23 10:40 Source: patient Mode of arrival: ambulatory Limitations: no limitations - History of Present Illness Initial comments: Patient is a 38-year-old male with past medical history remarkable for hypertension, anxiety, tobacco use presents emergency department with chest tightness, heart palpitations, cough and congestion. The chest tightness and heart palpitations have been ongoing for about a month. Recently moved back from [place] and states he has been under more stress lately. States they are more or less constant. Presents for further evaluation. He is also out of his prescriptions for metoprolol and losartan is asking for refills. Denies any jennifer chest pain but describes the pain as feeling his heartbeat heavy. Denies nausea or vomiting. Denies diarrhea. Denies abdominal pain or shortness of breath. States he has been under more stress lately. Does have positive sick contact in his mother, and states he may have COVID. Is a daily tobacco user. Presents for further evaluation. No cardiac history for the patient. - Related Data Home Medications Medication Instructions Recorded Confirmed Losartan [Cozaar] 50 mg PO DAILY 03/01/23 03/03/23 Metoprolol Succinate (ER) [Toprol 100 mg PO DAILY 03/01/23 03/03/23 XL] Rizatriptan Odt [Maxalt MOLD CAR PUSHER] 10 mg PO BID PRN 03/01/23 03/03/23 Previous Rx's Medication Instructions Recorded Mirtazapine [Remeron] 15 mg PO HS PRN 14 Days #14 tab 03/09/23 Nicotine 14Mg/24Hr Patch [Habitrol] 1 patch TRANSDERM DAILY 14 Days 03/09/23 #14 patch Nicotine Gum (Polacrilex) 2 mg BUCCAL Q4HR PRN pieceofgum 03/09/23 [Nicorette] Sertraline [Zoloft] 100 mg PO DAILY 30 Days #30 tab 03/09/23 diphenhydrAMINE [Benadryl] 50 mg PO HS 30 Days #30 cap 03/09/23 hydrOXYzine pamoate [Vistaril] 50 mg PO DAILY PRN 30 Days #30 cap 03/09/23 Albuterol Inhaler [Ventolin Hfa 2 puff INHALATION QID #8 gm 12/19/23 Inhaler] Losartan [Cozaar] 50 mg PO DAILY 30 Days #30 tab 12/19/23 Metoprolol Succinate (ER) [Toprol 100 mg PO DAILY 30 Days #30 tab 12/19/23 XL] predniSONE [Deltasone] 40 mg PO DAILY 5 Days #10 tab 12/19/23 Allergies Allergy/AdvReac Type Severity Reaction Status Date / Time No Known Allergies Allergy Verified 12/19/23 10:18 Review of Systems ROS Statement: Those systems with pertinent positive or pertinent negative responses have been documented in the HPI. Review of Systems: CONST: Denies fever EYES: Denies blurry vision ENT: Endorses congestion C/V: Endorses chest tightness RESP: Endorses cough, congestion GI: Denies abdominal pain : Denies dysuria SKIN: Denies rash. MSK: Denies joint pain. NEURO: Denies headache ROS Other: All systems not noted in ROS Statement are negative. Past Medical History Past Medical History: Hypertension Additional Past Medical History / Comment(s): Migraines History of Any Multi-Drug Resistant Organisms: None Reported Past Surgical History: No Surgical Hx Reported Additional Past Surgical History / Comment(s): oral surgery, deviated septum surgery Past Psychological History: Anxiety, Depression Past Drug Use History: Marijuana - Past Family History Mother Family Medical History: COPD, Pneumonia Additional Family Medical History / Comment(s): Emphysema, had recent heart cath General Exam - General Exam Comments Initial Comments: General: Appears anxious HEAD: Normal with no signs of head trauma. EYES: PERRLA, EOMI, conjunctiva normal, no discharge. ENT: Hearing grossly intact, normal oropharynx. RESPIRATORY: Bilateral end expiratory wheezing. No significant hypoxia on room air. C/V: Regular rate and rhythm. S1 and S2 auscultated, no edema, peripheral pulses 2+ and intact throughout ABD: Abd is soft, nontender, nondistended EXT: Normal range of motion, no obvious deformity SKIN: No rashes or lesions observed on exposed skin. NEURO: Alert and oriented x 4. Limitations: no limitations Course Vital Signs 12/19/23 12/19/23 12/19/23 10:16 10:59 11:00 Temperature 99.3 F Pulse Rate 101 H 91 82 Respiratory 16 20 22 Rate Blood Pressure 145/94 140/88 132/87 O2 Sat by Pulse 94 L 98 93 L Oximetry 12/19/23 12/19/23 12/19/23 11:30 12:00 12:30 Temperature Pulse Rate 85 81 81 Respiratory 21 23 22 Rate Blood Pressure 129/91 130/87 128/91 O2 Sat by Pulse 92 L 93 L 93 L Oximetry 12/19/23 12/19/23 12/19/23 12:35 12:43 13:43 Temperature Pulse Rate 77 82 68 Respiratory 16 16 16 Rate Blood Pressure 130/68 O2 Sat by Pulse 98 Oximetry Medical Decision Making - Medical Decision Making Was pt. sent in by a medical professional or institution (, [facility], [employer], urgent care, hospital, or half-way...) When possible be specific @ -No Did you speak to anyone other than the patient for history (EMS, parent, family, police, friend...)? What history was obtained from this source @ -No Did you review nursing and triage notes (agree or disagree)? Why? @ -I reviewed and agree with nursing and triage notes Were old charts reviewed (outside hosp., previous admission, EMS record, old EKG, old radiological studies, urgent care reports/EKG's, half-way records)? Report findings @ -Old charts reviewed confirming patient's prescriptions. Differential Diagnosis (chest pain, altered mental status, abdominal pain women, abdominal pain men, vaginal bleeding, weakness, fever, dyspnea, syncope, headache, dizziness, GI bleed, back pain, seizure, CVA, palpatations, mental health, musculoskeletal)? @ -COPD, COVID, flu, RSV, anxiety, ACS. This list is not all inclusive. EKG interpreted by me (3pts min.). @ -As above X-rays interpreted by me (1pt min.). @ -Chest x-ray reveals no obvious acute cardiopulmonary process. CT interpreted by me (1pt min.). @ -None done U/S interpreted by me (1pt. min.). @ -None done What testing was considered but not performed or refused? (CT, X-rays, U/S, labs)? Why? @ -None What meds were considered but not given or refused? Why? @ -None Did you discuss the management of the patient with other professionals (professionals i.e. , [facility], [employer], lab, RT, psych nurse, foster care social worker, lawyer criminal, teacher, defence force senior officer, rehabilitation case coordinator)? Give summary @ -No Was smoking cessation discussed for >3mins.? @ -yes Was critical care preformed (if so, how long)? @ -No Were there social determinants of health that impacted care today? How? (Homeles sness, low income, unemployed, alcoholism, drug addiction, transportation, low edu. Level, literacy, decrease access to med. care, prison, rehab)? @ -No Was there de-escalation of care discussed even if they declined (Discuss DNR or withdrawal of care, Hospice)? DNR status @ -No What co-morbidities impacted this encounter? (DM, HTN, Smoking, COPD, CAD, Cancer, CVA, ARF, Chemo, Hep., AIDS, mental health diagnosis, sleep apnea, morbid obesity)? @ -None Was patient admitted / discharged? Hospital course, mention meds given and route, prescriptions, significant lab abnormalities, going to OR and other pertinent info. @ -Patient presents for multiple complaints. He is out of his blood pressure medications and is also having some atypical chest discomfort for weeks with cough and congestion and some shortness of breath. Exam concerning for COPD. Possible anxiety. We will obtain cardiac workup. Patient was in agreement this plan. Vital signs are within acceptable limits. He will be given IV steroids, breathing treatment, the dose of Ativan and fluids. EKG showed no signs of acute ischemia. Laboratory studies remarkable for mild leukocytosis of 14.6 which could be secondary to dehydration as his platelet count is also slightly elevated to 509. Troponin is undetectable. Viral swabs negative. Chest x-ray unremarkable. On reevaluation, patient is feeling improved. Lung sounds are clear. I did offer admission for the chest discomfort to observation which he declined at t his time. He would like to go home. I believe this is reasonable. Patient be given prescriptions for his blood pressure medications as well as prednisone and albuterol inhaler. Counseled him to stop tobacco use. I will provide the patient with a prescription for prednisone, albuterol inhaler, metoprolol, losartan. I instructed the patient to follow up with their PCP in the next 1-3 days.. I explained that the patient should return to the emergency department if they experience any worsening symptoms. Strict return precautions were discussed with the patient. The patient expressed understanding of these instructions. I answered all questions that the patient had. The patient was discharged home in good condition with their prescriptions and follow up information. Undiagnosed new problem with uncertain prognosis? @ -No Drug Therapy requiring intensive monitoring for toxicity (Heparin, Nitro, Insulin, Cardizem)? @ -No Were any procedures done? @ -No Diagnosis/symptom? @ -Atypical chest pain, anxiety, COPD, medication refill, tobacco dependence Acute, or Chronic, or Acute on Chronic? @ -Acute Uncomplicated (without systemic symptoms) or Complicated (systemic symptoms)? @ -Uncomplicated Side effects of treatment? @ -No Exacerbation, Progression, or Severe Exacerbation? @ -No Poses a threat to life or bodily function? How? (Chest pain, [place], [place], pneumonia, PE, COPD, DKA, ARF, appy, cholecystitis, CVA, Diverticulitis, Homicidal, Suicidal, threat to staff... and all critical care pts) @ -Unlikely - Lab Data Result diagrams: 12/19/23 10:44 12/19/23 10:44 Lab Results 12/19/23 12/19/23 12/19/23 Range/Units 10:44 10:44 10:44 WBC 14.6 H (3.8-10.6) k/uL RBC 5.22 (4.30-5.90) m/uL Hgb 14.8 (13.0-17.5) gm/dL Hct 44.3 (39.0-53.0) % MCV 84.9 (80.0-100.0) fL MCH 28.3 (25.0-35.0) pg MCHC 33.3 (31.0-37.0) g/dL RDW 13.5 (11.5-15.5) % Plt Count 509 H (150-450) k/uL MPV 8.7 Neutrophils % 76 % Lymphocytes % 16 % Monocytes % 3 % Eosinophils % 2 % Basophils % 0 % Neutrophils # 11.2 H (1.3-7.7) k/uL Lymphocytes # 2.4 (1.0-4.8) k/uL Monocytes # 0.5 (0-1.0) k/uL Eosinophils # 0.3 (0-0.7) k/uL Basophils # 0.1 (0-0.2) k/uL PT 10.2 (10.0-12.5) sec INR 0.9 (<1.2) APTT 25.7 (22.0-30.0) sec Sodium 135 L (137-145) mmol/L Potassium 5.0 (3.5-5.1) mmol/L Chloride 102 (98-107) mmol/L Carbon Dioxide 25 (22-30) mmol/L Anion Gap 8 mmol/L BUN 24 H (9-20) mg/dL Creatinine 0.71 (0.66-1.25) mg/dL Est GFR (CKD-EPI)AfAm >90 (>60 ml/min/1.73 sqM) Est GFR (CKD-EPI)NonAf >90 (>60 ml/min/1.73 sqM) Glucose 93 (74-99) mg/dL Calcium 9.9 (8.4-10.2) mg/dL Magnesium 1.8 (1.6-2.3) mg/dL Total Bilirubin 0.8 (0.2-1.3) mg/dL AST 40 (17-59) U/L ALT 25 (4-49) U/L Alkaline Phosphatase 36 L (38-126) U/L Troponin I (0.000-0.034) ng/mL Total Protein 7.3 (6.3-8.2) g/dL Albumin 4.5 (3.5-5.0) g/dL Influenza Type A (PCR) (Not Detectd) Influenza Type B (PCR) (Not Detectd) RSV (PCR) (Not Detectd) SARS-CoV-2 (PCR) (Not Detectd) 12/19/23 12/19/23 Range/Units 10:44 10:45 WBC (3.8-10.6) k/uL RBC (4.30-5.90) m/uL Hgb (13.0-17.5) gm/dL Hct (39.0-53.0) % MCV (80.0-100.0) fL MCH (25.0-35.0) pg MCHC (31.0-37.0) g/dL RDW (11.5-15.5) % Plt Count (150-450) k/uL MPV Neutrophils % % Lymphocytes % % Monocytes % % Eosinophils % % Basophils % % Neutrophils # (1.3-7.7) k/uL Lymphocytes # (1.0-4.8) k/uL Monocytes # (0-1.0) k/uL Eosinophils # (0-0.7) k/uL Basophils # (0-0.2) k/uL PT (10.0-12.5) sec INR (<1.2) APTT (22.0-30.0) sec Sodium (137-145) mmol/L Potassium (3.5-5.1) mmol/L Chloride (98-107) mmol/L Carbon Dioxide (22-30) mmol/L Anion Gap mmol/L BUN (9-20) mg/dL Creatinine (0.66-1.25) mg/dL Est GFR (CKD-EPI)AfAm (>60 ml/min/1.73 sqM) Est GFR (CKD-EPI)NonAf (>60 ml/min/1.73 sqM) Glucose (74-99) mg/dL Calcium (8.4-10.2) mg/dL Magnesium (1.6-2.3) mg/dL Total Bilirubin (0.2-1.3) mg/dL AST (17-59) U/L ALT (4-49) U/L Alkaline Phosphatase (38-126) U/L Troponin I <0.012 (0.000-0.034) ng/mL Total Protein (6.3-8.2) g/dL Albumin (3.5-5.0) g/dL Influenza Type A (PCR) Not Detected (Not Detectd) Influenza Type B (PCR) Not Detected (Not Detectd) RSV (PCR) Not Detected (Not Detectd) SARS-CoV-2 (PCR) Not Detected (Not Detectd) - EKG Data -: EKG Interpreted by Me EKG Comments: 12-lead Electrocardiogram Interpretation Note EKG was reviewed and interpreted by myself. 12-lead ECG performed at [facility] is interpreted by me as revealing normal sinus rhythm at a rate of 91 beats per minute. [place] is normal. [place] interval is 154 ms, QRS duration is 88 ms, QTc is 361 ms.. There were no ST or T wave abnormalities to suggest myocardial ischemi a or injury. R wave progression across the precordium was satisfactory. By my interpretation this EKG is non-diagnostic for acute ischemia. Disposition Clinical Impression: Atypical chest pain, Anxiety, COPD (chronic obstructive pulmonary disease), Medication refill, Tobacco dependence Disposition: HOME SELF-CARE Condition: Good Instructions (If sedation given, give patient instructions): Chest Pain (ED), COPD (Chronic Obstructive Pulmonary Disease) (ED), Anxiety (ED) Prescriptions: Losartan [Cozaar] 50 mg PO DAILY 30 Days #30 tab predniSONE [Deltasone] 40 mg PO DAILY 5 Days #10 tab Metoprolol Succinate (ER) [Toprol XL] 100 mg PO DAILY 30 Days #30 tab Albuterol Inhaler [Ventolin Hfa Inhaler] 2 puff INHALATION QID #8 gm Is patient prescribed a controlled substance at d/c from ED?: No Referrals: None,Stated [Primary Care Provider] - 1-2 days Time of Disposition: 13:03
[2023-12-19 13:44] VITALS: BP 130/68; PULSE 68
== END 2023-12-19 13:43 | disposition home or self-care (01) ==
LOC: EC 10:12
CPT/HCPCS: 36415; 71046; 80053; 83735; 84484; 85025; 85610; 85730; 87636; 93005; 94640; 96361; 96374; 96375; 99285

== ENCOUNTER 2024-02-07 09:05 | Emergency (ER) | payer OTHER ==
--- NOTE | 2024-02-07 09:59 | ED ---
Fall HPI - General Chief Complaint: Fall Stated Complaint: Fall-head injury Time Seen by Provider: 02/07/24 09:24 Source: patient, RN notes reviewed Mode of arrival: ambulatory - History of Present Illness Initial Comments: 38 year old male presents to the emergency department with chief complaint of fall injury. He states that last night he fell off of one step and landed on the right side of his head without losing consciousness. He states that while he was at work, he noticed right wrist swelling, shoulder pain, neck pain, nausea, and headache along with ringing in his right ear. He denies blood thinners, gait disturbances, loss of consciousness, and other complaints. He reports a history of migraine headache and hypertension. - Related Data Home Medications Medication Instructions Recorded Confirmed Losartan [Cozaar] 50 mg PO DAILY 03/01/23 03/03/23 Metoprolol Succinate (ER) [Toprol 100 mg PO DAILY 03/01/23 03/03/23 XL] Rizatriptan Odt [Maxalt BLEACH MIXER] 10 mg PO BID PRN 03/01/23 03/03/23 Previous Rx's Medication Instructions Recorded Mirtazapine [Remeron] 15 mg PO HS PRN 14 Days #14 tab 03/09/23 Nicotine 14Mg/24Hr Patch [Habitrol] 1 patch TRANSDERM DAILY 14 Days 03/09/23 #14 patch Nicotine Gum (Polacrilex) 2 mg BUCCAL Q4HR PRN pieceofgum 03/09/23 [Nicorette] Sertraline [Zoloft] 100 mg PO DAILY 30 Days #30 tab 03/09/23 diphenhydrAMINE [Benadryl] 50 mg PO HS 30 Days #30 cap 03/09/23 hydrOXYzine pamoate [Vistaril] 50 mg PO DAILY PRN 30 Days #30 cap 03/09/23 Albuterol Inhaler [Ventolin Hfa 2 puff INHALATION QID #8 gm 12/19/23 Inhaler] Losartan [Cozaar] 50 mg PO DAILY 30 Days #30 tab 12/19/23 Metoprolol Succinate (ER) [Toprol 100 mg PO DAILY 30 Days #30 tab 12/19/23 XL] predniSONE [Deltasone] 40 mg PO DAILY 5 Days #10 tab 12/19/23 Allergies Allergy/AdvReac Type Severity Reaction Status Date / Time No Known Allergies Allergy Verified 02/07/24 09:12 Review of Systems ROS Statement: Those systems with pertinent positive or pertinent negative responses have been documented in the HPI. ROS Other: All systems not noted in ROS Statement are negative. Past Medical History Past Medical History: Hypertension Additional Past Medical History / Comment(s): Migraines History of Any Multi-Drug Resistant Organisms: None Reported Past Surgical History: No Surgical Hx Reported Additional Past Surgical History / Comment(s): oral surgery, deviated septum surgery Past Psychological History: Anxiety, Depression Smoking Status: Current every day smoker Past Alcohol Use History: None Reported Past Drug Use History: Marijuana - Past Family History Mother Family Medical History: COPD, Pneumonia Additional Family Medical History / Comment(s): Emphysema, had recent heart cath General Exam Limitations: no limitations General appearance: alert, in no apparent distress Head exam: Present: atraumatic, normocephalic, normal inspection Eye exam: Present: normal appearance, PERRL, EOMI. Absent: scleral icterus, con junctival injection, periorbital swelling ENT exam: Present: normal exam, mucous membranes moist Neck exam: Present: normal inspection. Absent: tenderness, meningismus, lymphadenopathy Respiratory exam: Present: normal lung sounds bilaterally. Absent: respiratory distress, wheezes, rales, rhonchi, stridor Cardiovascular Exam: Present: regular rate, normal rhythm, normal heart sounds. Absent: systolic murmur, diastolic murmur, rubs, gallop, clicks GI/Abdominal exam: Present: soft, normal bowel sounds. Absent: distended, tenderness, guarding, rebound, rigid Extremities exam: Present: normal inspection, full ROM, normal capillary refill. Absent: tenderness, pedal edema, joint swelling, calf tenderness Back exam: Present: normal inspection Neurological exam: Present: alert, oriented X3, CN II-XII intact Psychiatric exam: Present: normal affect, normal mood Skin exam: Present: warm, dry, intact, normal color. Absent: rash Course Vital Signs 02/07/24 02/07/24 02/07/24 09:09 11:02 11:37 Temperature 99 F 98.0 F Pulse Rate 90 91 92 Respiratory 20 18 18 Rate Blood Pressure 176/90 156/91 150/92 O2 Sat by Pulse 99 97 99 Oximetry Medical Decision Making - Medical Decision Making Was pt. sent in by a medical professional or institution ([facility]ul[facility], C[employer]ING [employer] OFF[employer]ARER, urgent care, hospital, or group home...) When possible be specific @ -No Did you speak to anyone other than the patient for history (EMS, parent, family, police, friend...)? What history was obtained from this source @ -No Did you review nursing and triage notes (agree or disagree)? Why? @ -I reviewed and agree with nursing and triage notes Were old charts reviewed (outside hosp., previous admission, EMS record, old EKG, old radiological studies, urgent care reports/EKG's, group home records)? Report findings @ -No old charts were reviewed Differential Diagnosis (chest pain, altered mental status, abdominal pain women, abdominal pain men, vaginal bleeding, weakness, fever, dyspnea, syncope, headache, dizziness, GI bleed, back pain, seizure, CVA, palpatations, mental health, musculoskeletal)? @ -Fall, intracranial hemorrhage, concussion, skull fracture, cervical fracture, shoulder fracture wrist fracture EKG interpreted by me (3pts min.). @ -None X-rays interpreted by me (1pt min.). @ -X-ray right shoulder no acute fracture dislocation X-ray right wrist no acute fracture CT interpreted by me (1pt min.). @ -CT brain, C-spine showing no acute intracranial hemorrhage, cervical fracture U/S interpreted by me (1pt. min.). @ -None done What testing was considered but not performed or refused? (CT, X-rays, U/S, labs)? Why? @ -None What meds were considered but not given or refused? Why? @ -None Did you discuss the management of the patient with other professionals (professionals i.e. [facility]ul[facility], [employer] OFF[employer]ER, lab, RT, psych nurse, social worker masters, physician relations specialist, teacher, catapult and arresting gear officer, case monitor)? Give summary @ -No Was smoking cessation discussed for >3mins.? @ -No Was critical care preformed (if so, how long)? @ -No Were there social determinants of health that impacted care today? How? (Homelessness, low income, unemployed, alcoholism, drug addiction, transportation, low edu. Level, literacy, decrease access to med. care, half-way, rehab)? @ -No Was there de-escalation of care discussed even if they declined (Discuss DNR or withdrawal of care, Hospice)? DNR status @ -No What co-morbidities impacted this encounter? (DM, HTN, Smoking, COPD, CAD, C ancer, CVA, ARF, Chemo, Hep., AIDS, mental health diagnosis, sleep apnea, morbid obesity)? @ -None Was patient admitted / discharged? Hospital course, mention meds given and route, prescriptions, significant lab abnormalities, going to OR and other pertinent info. @ -Discharge patient presented after fall down steps patient did have severe mechanism of injury requiring CT. Patient had negative imaging patient is discharged in stable condition return parameters coty. Undiagnosed new problem with uncertain prognosis? @ -No Drug Therapy requiring intensive monitoring for toxicity (Heparin, Nitro, Insulin, Cardizem)? @ -No Were any procedures done? @ -No Diagnosis/symptom? @ -Fall, right wrist injury right arm contusion, concussion Acute, or Chronic, or Acute on Chronic? @ -Acute Uncomplicated (without systemic symptoms) or Complicated (systemic symptoms)? @ -Uncomplicated Side effects of treatment? @ -No Exacerbation, Progression, or Severe Exacerbation? @ -No Poses a threat to life or bodily function? How? (Chest pain, [place], [place], pneumonia, PE, COPD, DKA, ARF, appy, cholecystitis, CVA, Diverticulitis, Homicidal, Suicidal, threat to staff... and all critical care pts) @ -No Disposition Clinical Impression: Fall, Concussion, Contusion of arm, right Disposition: HOME SELF-CARE Condition: Stable Instructions (If sedation given, give patient instructions): Concussion (ED) Additional Instructions: Please return to the Emergency Department if symptoms worsen or any other concerns. Is patient prescribed a controlled substance at d/c from ED?: No Referrals: None,Stated [Primary Care Provider] - 1-2 days Time of Disposition: 11:20
--- NOTE | 2024-02-07 10:11 | CT ---
EXAMINATION TYPE: CT brain cspine wo con CT DLP: 1328.9 mGycm, Automated exposure control for dose reduction was used. DATE OF EXAM: 02/07/2024 10:03 AM COMPARISON: CT brain C-spine 07/18/2010. CLINICAL INDICATION:Male, 38 years old with history of pain/trauma; fall hit right lateral side of he ad no LOC, neck pain TECHNIQUE: Brain: Multiple axial CT images of the brain were obtained without IV contrast. Cspine: Axial CT images from the skull base to the inferior aspect of T2 we obtained without intraven ous contrast. Coronal and sagittal reformatted images were also reviewed. FINDINGS: Brain: Extra-axial spaces: No abnormal extra-axial fluid collections. Ventricular system: Within normal limits Cerebral parenchyma: No acute intraparenchymal hemorrhage or mass effect. The smith-white junction is well differentiated. Cerebellum: Unremarkable. Mass effect: No evidence of midline shift. Intracranial vasculature: unremarkable Soft tissues: Normal. Calvarium/osseous structures: No depressed skull fracture. Paranasal sinuses and mastoid air cells: Clear. Visualized orbits: Orbital contents are intact. Cervical spine: Fracture: None. Osseous structures: Unremarkable Vertebral alignment: Within normal limits. Spinal canal/Neural Foramina: No evidence of significant spinal canal narrowing. No evidence for sign ificant neural foraminal stenosis. Neck soft tissues: Prevertebral soft tissues are within normal limits. Calcification identified poste rior to the C4-C5 spinous process within the soft tissues. Other: The airway is patent. The lung apices are clear. IMPRESSION: 1. No acute intracranial process. 2. No evidence of cervical spine fracture. [facility], , 02/07/2024 10:09 AM
--- NOTE | 2024-02-07 10:39 | XR ---
EXAMINATION TYPE: XR shoulder complete RT DATE OF EXAM: 02/07/2024 10:15 AM COMPARISON: None CLINICAL INDICATION: Male, 38 years old with history of pain; [facility] TECHNIQUE: XR shoulder complete RT; examined in AP, internally rotated and scapular Y projections. FINDINGS: No evidence of acute osseous pathology, joint dislocation, or soft tissue swelling. The remaining po rtions of the visualized chest are unremarkable. Degeneration changes of the acromion, distal clavic le with osteophyte formation. There is osteophyte formation of the glenoid and humeral head. There is joint space narrowing of glenohumeral joint. IMPRESSION: 1. No acute osseous pathology. 2. Mild shoulder osteoarthrosis. [facility], , 02/07/2024 10:37 AM
--- NOTE | 2024-02-07 10:50 | XR ---
EXAMINATION TYPE: XR wrist complete RT DATE OF EXAM: 02/07/2024 10:15 AM COMPARISON: None CLINICAL INDICATION: Male, 38 years old with history of pain; TECHNIQUE: XR wrist complete RT; examined in the Frontal, navicular, lateral, and oblique. FINDINGS: No acute osseous pathology, joint dislocation, or joint effusion. No evidence of any soft tissue swelling is seen. IMPRESSION: No acute osseous pathology. [facility], , 02/07/2024 10:48 AM
[2024-02-07 11:04] VITALS: RESP 18
[2024-02-07 11:39] VITALS: BP 150/92; PULSE 92; TEMP 98
== END 2024-02-07 11:40 | disposition home or self-care (01) ==
LOC: EC 09:05
DX: S06.0XAA Concussion with loss of consciousness status unknown, initial encounter (principal); S40.021A Contusion of right upper arm, initial encounter; F17.200 Nicotine dependence, unspecified, uncomplicated; W01.0XXA Fall on same level from slipping, tripping and stumbling without subsequent striking against object, initial encounter
CPT/HCPCS: 70450; 72125; 99284